=== PATIENT | female | born 1955 | race Caucasian/White ===

== ENCOUNTER → 2017-12-15 16:57 | Outpatient (CLI) | payer OTHER, SELFPAY ==
--- NOTE | 2017-12-15 17:01 | CT_ITS ---
STUDY: CT MAXILLOFACIAL SINUSES REASON FOR EXAM: Female, 62 years old. Chronic sinusitis. RADIATION DOSAGE (If Supplied By Facility): CTDIvol = ( 29.38 ) mGy, DLP = ( 378.50 ) mGycm TECHNIQUE: The patient was scanned in a multi detector CT scanner. High resolution axial imaging was performed without the administration of intravenous contrast material. Sagittal and coronal images were reconstructed. Individualized dose optimization techniques were used for this CT. COMPARISON: None. FINDINGS: FRONTAL SINUSES: Normal aeration, without mucosal inflammatory disease. ETHMOIDAL SINUSES: Normal aeration, without mucosal inflammatory disease. MAXILLARY SINUSES: Minimal mucosal thickening in the floor of the right maxillary sinus, otherwise normal aeration, without mucosal inflammatory disease. SPHENOIDAL SINUSES: Normal aeration, without mucosal inflammatory disease. There is patency of the bilateral maxillary infundibuli with normal uncinate processes, ethmoid bullae, and hiatus semilunaris. Normal bilateral middle turbinates. Normal bilateral inferior turbinates. Normal midline nasal septum. There is patency of the bilateral nasal airways. The visualized osseous structures are normal. The visualized bilateral orbital contents are normal. CT/Sinus/Facial Bone IMPRESSION: Within normal limits. Electronically Signed: Keyshawn Alfaro MD at 23:54 EDT , Service support ,
== END ==
PROVIDERS: Family Provider Family Medicine; PCP Family Medicine
DX: J32.0 Chronic maxillary sinusitis (principal)
CPT/HCPCS: 70486

== ENCOUNTER → 2018-03-03 10:21 | Outpatient (CLI) | payer OTHER, SELFPAY ==
--- NOTE | 2018-03-03 10:24 | BD_ITS ---
STUDY: DUAL ENERGY X-RAY ABSORPTIOMETRY / DXA REASON FOR EXAM: Female, 62 years old. The patient is postmenopausal. TECHNIQUE: Bone Mineral Density (BMD) measurements of lumbar spine and left wrist were obtained. The patient is status post bilateral total hip replacement. COMPARISON: None. FINDINGS: Lumbar Spine (L1-L4): g/cm2 (1.296) / T-score (1.0) / Z-score (2.3) Findings are suggestive of normal bone density with a low fracture risk. Left Forearm: g/cm2 (0.841) / T-score (-0.4) / Z-score (0.7) BD/Dexa Bone Density Study IMPRESSION: The patient is considered normal as outlined below according to World [place] Organization (WHO) criteria with a low fracture risk. Reference Information: The T-score is the number of standard deviations above or below the standard which is normal for young adults at their peak bone mineral density. The World Health Organization (WHO) interprets the T-scores as follows: Above -1 Normal bone density Between -1 and -2.5 Osteopenia Equal to / or below -2.5 Osteoporosis As a practical clinical guideline, osteopenia may be graded as follows: Mild -1 through -1.5 Moderate -1.6 through -2.0 Severe -2.1 through -2.4 The Z-score is the number of standard deviations above or below age-matched controls. A Z-score of less than -1.5 would be considered abnormal. References: 1. NIH Osteoporosis and Related Bone Diseases http://www.osteo.org 2. International Society for Clinical Densitometry http://www.iscd.org 3. National Osteoporosis Foundation http://www.nof.org Electronically Signed: Yunior Barney MD at 15:31 EDT Tel [phone], Service support ,
== END ==
PROVIDERS: Family Provider Family Medicine; PCP Family Medicine; Visit Provider Family Medicine
DX: Z13.228 Encounter for screening for other metabolic disorders (principal)
CPT/HCPCS: 77080

== ENCOUNTER 2018-05-18 17:30 | Outpatient (RCR) | payer OTHER, SELFPAY ==
--- NOTE | 2018-07-03 09:23 | HP.PT.NRP ---
HP - Discharge Summary (1) - Patient Information VIRA MORROW was seen in my office for initial evaluation on 01/12/18. The following Plan of Care was established for this patient: This patient was last seen in our office 05/15/18. Pertinent comments regarding their Physical therapy will appear below: Pt. was seen for DN self pay of her L hip. Pt. will be DC from PT at this point in time. At this point I will be discontinuing this patient from physical therapy. I would be happy to see this patient again in the future if found appropriate by the physician. Thank you! Saw Hammonds
== END 2018-05-18 19:00 | disposition home or self-care (01) ==
LOC: PT 17:30
PROVIDERS: Family Provider Family Medicine; PCP Family Medicine
DX: R69 Illness, unspecified (principal)

== ENCOUNTER → 2018-06-10 11:18 | Outpatient (CLI) | payer OTHER, SELFPAY ==
[2018-06-10 14:14] LABS: Absolute Lymphocyte Count 1.41 X10^3/ul (0.83-4.51); Absolute Neutrophil Count 2.9 X10^3/uL (2.0-7.7); Basophil# 0.01 X10^3/uL; Basophil% 0.2 % (0-1); Eosinophil# 0.15 X10^3/uL; Eosinophils% 3.1 % (0-5); Hematocrit 39.2 % (37-47); Hemoglobin 12.7 g/dl (12.0-15.0); Lymphocyte # 1.41 X10^3/ul (4.0); Lymphocyte % 29.3 % (19-41); Mean Corp Hgb Conc 32.4 g/gl (32-36); Mean Corpuscular Hgb 30.2 pg (27.0-32.0); Mean Corpuscular Volume 93.1 fL (81-99); Mean Platelet Vol. 9.4 fl (6.2-12.0); Monocyte# 0.37 X10^3/uL; Monocyte% 7.7 % (0-10); Neutrophil # 2.87 X10^3/uL (2.7-7.7); Neutrophil % 59.5 % (47-70); Platelet Count 308 K/mm3 (150-450); RBC Distribution Width CV 12.5 % (11.6-14.6); RBC Distribution Width SD 41.9 fl (35.1-43.9); Red Blood Count 4.21 M/mm3 (4.2-5.4); White Blood Count 4.8 K/mm3 (4.4-11.0)
[2018-06-10 14:15] LABS: POSITIVE COUNT NO; POSITIVE DIFFERENTIAL NO; POSITIVE MORPHOLOGY NO
[2018-06-10 14:36] LABS: Anion Gap 5 (5-15); BUN 14 mg/dL (7-18); BUN/Creat Ratio 16.2 RATIO (10-20); Calcium,Total 8.8 mg/dL (8.5-10.1); Chloride 103 mmol/L (98-107); Cholesterol 225 mg/dL (200); Creatinine, Serum 0.87 mg/dL (0.55-1.02); EST Glomerular Filtration Rate 71 mL/min (>60); Est Glom Filt Rate - Afr Amer 85 mL/min (>60); Glucose 96 mg/dL (74-106); High Density Lipoprotein 51 mg/dL; Potassium 4.1 mmol/L (3.5-5.1); Sodium Level 138 mmol/L (136-145); Thyroid Stim Hormone (TSH) 0.81 uIU/mL (0.358-3.74); Triglycerides 189 mg/dL; Very Low Density Lipoprotein 38 mg/dL (5-40)
== END ==
PROVIDERS: Family Provider Family Medicine; PCP Family Medicine; Visit Provider Family Medicine
DX: R00.2 Palpitations (principal); E78.5 Hyperlipidemia, unspecified; E03.9 Hypothyroidism, unspecified
CPT/HCPCS: 36415; 80048; 80061; 84443; 85025

== ENCOUNTER → 2018-06-22 12:25 | Outpatient (CLI) | payer OTHER, SELFPAY ==
--- NOTE | 2018-06-22 12:31 | STE_ITS ---
Reason For Study: Palpitations Stress Results Protocol: Agapito Protocol Maximum Predicted HR: 158 bpm Target HR: 134 bpm% Max imum Predicted HR: 89 % DurationHeart Rate Stage (mm:ss) (bpm) BPCom ment Baseline 74 108/60 No Chest Pain Agapito Protocol Stage I 3:00 10 1 114/76No Chest Pain Agapito Protocol Stage II 3:00 12 2 130/60No Chest Pain Agapito Protocol Stage III 3:00 13 6 140/62No Chest Pain Agapito Protocol Stage IV 0:15 14 1 / No Chest Pain Recovery 79 120/60 No Chest Pain Stress Duration: 9:15 mm:ss Maximum Stress HR: 141 bpmM ETS: 10 Baseline Echocardiogram Findings Stress Echo Wall motion Data Resting WMIntermediate WMStress WM Resting Wall Motion Wall Motion Stress No regional wall motion No regional wall motion abnormalities noted. abnormalities noted. Ejection Fraction 60 %. Ejection Fraction 70 %. Stress Results Normal blood pressure response to exercise. Exercise was stopped due to fatigue. Interpretation Summary Exercise stress echo. Stress protocol: Resting EKG demonstrates normal sinus rhythm with a rate of 56 bpm normal intervals and noted resting blood pressure 108/60 mmHg. The patient exercised according to regular Agapito protocol for a total duration of 9 minutes and 15 seconds. The maximum heart rate attained was 142 bpm is 89% maximum predicted heart rate the maximum workload was 10.9 metabolic equivalents. At rest there were no ST or T wave changes noted suggest ischemia peak exercise upsloping ST changes only were noted with no meet the criteria for ischemia. No clinical angina was noted no arrhythmias were noted. The resting blood pressure 108/60 mmHg with a peak blood pressure 140/62 mmHg. Stress echocardiographic images. The resting echo demonstrated an ejection fraction of 60% with a stress echocardiographic image with all stahl improving with exercise, no regional wall motion abnormalities noted, and improvement with ejection fraction at 70%. Conclusion Normal stress echocardiogram with no EKG or echocardiographic images suggestive of ischemia. Excellent functional capacity. Ordering Physician: Brennen Cornell Referring Physician: Wayne Jennings Performed By: Jaimie Edmonds, RDCS, RVT
== END ==
PROVIDERS: Family Provider Family Medicine; PCP Family Medicine; Referring Provider Family Medicine; Visit Provider Family Medicine
DX: R00.2 Palpitations (principal)
CPT/HCPCS: 93017; 93350

== ENCOUNTER 2018-07-07 14:54 | Outpatient (RCR) | payer SELFPAY ==
--- NOTE | 2018-12-10 16:39 | HP.PT.NRP ---
HP - Discharge Summary (1) - Patient Information VIRA MORROW was seen in my office for initial evaluation on . The following Plan of Care was established for this patient: This patient was last seen in our office . Pertinent comments regarding their Physical therapy will appear below: Dry Needling ayala based patient- appropriate to d/c chart At this point I will be discontinuing this patient from physical therapy. I would be happy to see this patient again in the future if found appropriate by the physician. Thank you! WILLIAMS DalalT
== END 2018-07-07 19:00 | disposition home or self-care (01) ==
LOC: PT 14:54
PROVIDERS: Family Provider Family Medicine; PCP Family Medicine
DX: R69 Illness, unspecified (principal)

== ENCOUNTER → 2019-02-17 | Outpatient (CLI) | payer OTHER, SELFPAY ==
[2018-12-17 14:37] VITALS: BMI 26.4
--- NOTE | 2019-02-17 12:48 | BI_ITS ---
MAMMOGRAPHY - BILATERAL SCREENING REASON FOR EXAM: Female, 63 years old. Routine annual screening examination. PERTINENT HISTORY: Non-contributory. TECHNIQUE: Digital bilateral breast judy (3D mammographic acquisition) in the CC and MLO projections. 2-D mediolateral oblique (MLO) and craniocaudad (CC) views of both breasts were obtained. CAD: Full Field Digital Mammography with Computer Added Detection was performed. COMPARISON: Comparison is made with prior outside examination dated March 27, 2016. FINDINGS: Breast Composition: The breasts are extremely dense, which lowers the sensitivity of mammography. There are no dominant masses or suspicious calcifications. Stable appearance of the bilateral axillary lymph nodes. No other significant abnormalities are identified. There has been no significant change since the prior study. BI/SCREEN MAMM (CAD) W/JUDY BILAT IMPRESSION: Stable bilateral screening mammogram. Yearly follow-up mammogram recommended. (A) ASSESSMENT CATEGORY: BIRADS Category 2: Benign. A letter regarding these results will be sent to the patient by the facility within 30 days. Approximately 10% of breast cancers are not detected by mammography. A normal mammogram should not delay biopsy of a clinically suspicious abnormality. [id number] Electronically Signed: Yunior Barney, at 13:26 EDT , Service support ,
== END | disposition home or self-care (01) ==
PROVIDERS: Family Provider Family Medicine; PCP Family Medicine; Referring Provider Nurse Practitioner Women's Health; Visit Provider Nurse Practitioner Women's Health
DX: Z12.31 Encounter for screening mammogram for malignant neoplasm of breast (principal)
CPT/HCPCS: 77063; 77067

== ENCOUNTER → 2019-07-20 | Outpatient (CLI) | payer OTHER, SELFPAY ==
[2019-05-03 09:26] VITALS: BMI 26.1
[2019-07-20 13:12] LABS: Cholesterol 175 mg/dL (200); High Density Lipoprotein 60 mg/dL; Thyroid Stim Hormone (TSH) 1.74 uIU/mL (0.358-3.74); Triglycerides 95 mg/dL; Very Low Density Lipoprotein 19 mg/dL (5-40)
== END | disposition home or self-care (01) ==
LOC: MTLAB 09:52
PROVIDERS: Family Provider Family Medicine; PCP Family Medicine; Referring Provider Family Medicine; Visit Provider Family Medicine
DX: E03.9 Hypothyroidism, unspecified (principal); E78.5 Hyperlipidemia, unspecified
CPT/HCPCS: 36415; 80061; 84443

== ENCOUNTER → 2020-02-11 15:27 | Outpatient (CLI) | payer OTHER, SELFPAY ==
[2020-02-07 08:42] VITALS: BMI 26.1
[2020-02-11 17:58] LABS: Absolute Lymphocyte Count 1.13 X10^3/uL (0.83-4.51); Absolute Neutrophil Count 3.2 X10^3/uL (2.0-7.7); Basophil# 0.02 X10^3/uL; Basophil% 0.4 % (0-1); Eosinophil# 0.11 X10^3/uL; Eosinophils% 2.3 % (0-5); Hematocrit 36.3 % (37-47); Hemoglobin 11.7 g/dL (12.0-15.0); Lymphocyte # 1.13 X10^3/ul (4.0); Lymphocyte % 23.7 % (19-41); Mean Corp Hgb Conc 32.2 g/dL (32-36); Mean Corpuscular Hgb 30.6 pg (27.0-32.0); Monocyte# 0.31 X10^3/uL; Monocyte% 6.5 % (0-10); NRBC Flagged by Analyzer 0 % (0-5); Neutrophil # 3.19 X10^3/uL (2.7-7.7); Neutrophil % 66.9 % (47-70); Platelet Count 265 K/mm3 (150-450); RBC Distribution Width CV 12.7 % (11.6-14.6); RBC Distribution Width SD 43.8 fl (35.1-43.9); Red Blood Count 3.82 M/mm3 (4.2-5.4); White Blood Count 4.8 K/mm3 (4.4-11.0)
[2020-02-11 18:18] LABS: ALB/GLOB Ratio 1.1 RATIO (0.9-2.4); AST(SGOT) 29 U/L (15-37); Alanine Aminotransfer ALT/SGPT 30 U/L (13-56); Albumin, Serum 3.6 g/dL (3.2-5.0); Alkaline Phosphatase 57 U/L (45-117); Anion Gap 5 (5-15); BUN 23 mg/dL (7-18); BUN/Creat Ratio 23.7 RATIO (10-20); Calcium,Total 8.5 mg/dL (8.5-10.1); Chloride 105 mmol/L (98-107); Creatinine, Serum 0.97 mg/dL (0.55-1.02); EST Glomerular Filtration Rate 62 mL/min (>60); Est Glom Filt Rate - Afr Amer 74 mL/min (>60); Globulin 3.3 g/dL (2.2-4.2); Glucose 86 mg/dL (74-106); Protein, Total 6.9 g/dL (6.4-8.2); Sodium Level 139 mmol/L (136-145)
== END ==
PROVIDERS: PCP Family Medicine; Referring Provider Family Medicine; Visit Provider Family Medicine
DX: R42 Dizziness and giddiness (principal)
CPT/HCPCS: 36415; 80053; 84443; 85025

== ENCOUNTER → 2020-02-18 11:57 | Outpatient (CLI) | payer OTHER, SELFPAY ==
[2020-02-07 08:42] VITALS: BMI 26.1
[2020-02-18 15:20] LABS: Platelet Count 252 K/mm3 (150-450); RET-HE 35.9 pg (30-35); Reticulocyte Count 0.77 % (0.5-1.5)
[2020-02-18 15:58] LABS: Vitamin B12 435 pg/mL (211-911)
[2020-02-18 16:44] LABS: Ferritin 44 ng/mL (8-252); Iron Binding Capacity,Total 373 ug/dL (250-450)
== END ==
PROVIDERS: PCP Family Medicine; Visit Provider Family Medicine
DX: D64.9 Anemia, unspecified (principal)
CPT/HCPCS: 36415; 82607; 82728; 82746; 83550; 85045

== ENCOUNTER → 2020-02-21 | Outpatient (CLI) | payer OTHER, SELFPAY ==
[2019-05-03 09:26] VITALS: BMI 26.1
[2020-02-07 08:42] VITALS: BMI 26.1
--- NOTE | 2020-02-21 11:05 | BI_ITS ---
MAMMOGRAPHY - BILATERAL SCREENING REASON FOR EXAM: Female, 64 years old. Routine annual screening examination. PERTINENT HISTORY: Non-contributory. TECHNIQUE: Digital bilateral breast judy (3D mammographic acquisition) in the CC and MLO projections. 2-D mediolateral oblique (MLO) and craniocaudad (CC) views of both breasts were obtained. CAD: Full Field Digital Mammography with Computer Added Detection was performed. COMPARISON: Comparison is made with prior examination dated February 17, 2019. FINDINGS: Breast Composition: The breasts are extremely dense, which lowers the sensitivity of mammography. There are no dominant masses or suspicious calcifications. No other significant abnormalities are identified. There has been no significant change since the prior study. BI/SCREEN MAMM (CAD) W/JUDY BILAT IMPRESSION: Stable bilateral screening mammogram. Yearly follow-up mammogram recommended. (A) ASSESSMENT CATEGORY: BIRADS Category 1: Negative. A letter regarding these results will be sent to the patient by the facility within 30 days. Approximately 10% of breast cancers are not detected by mammography. A normal mammogram should not delay biopsy of a clinically suspicious abnormality. [id number] Electronically Signed: Yunior Barney, at 12:26 EDT , Service support ,
== END | disposition home or self-care (01) ==
LOC: OPBI 11:05
PROVIDERS: PCP Family Medicine; Referring Provider Nurse Practitioner Women's Health; Visit Provider Nurse Practitioner Women's Health
DX: Z12.31 Encounter for screening mammogram for malignant neoplasm of breast (principal)
CPT/HCPCS: 77063; 77067

== ENCOUNTER → 2020-02-23 16:31 | Outpatient (CLI) | payer OTHER, SELFPAY ==
[2020-02-23 13:25] VITALS: BMI 26.1
[2020-03-01 03:17] LABS: HPV APTIMA, High Risk Negative (Negative)
== END ==
PROVIDERS: PCP Family Medicine; Referring Provider Nurse Practitioner Women's Health; Visit Provider Nurse Practitioner Women's Health
DX: Z12.4 Encounter for screening for malignant neoplasm of cervix (principal)
CPT/HCPCS: 87624; 88175; G0145

== ENCOUNTER → 2020-03-21 15:54 | Outpatient (CLI) | payer OTHER, SELFPAY ==
[2020-03-21 11:52] VITALS: BMI 26.1
== END ==
PROVIDERS: PCP Family Medicine; Referring Provider Nurse Practitioner Women's Health; Visit Provider Nurse Practitioner Women's Health
DX: N95.2 Postmenopausal atrophic vaginitis (principal)
CPT/HCPCS: 87070; 87106; 87205

== ENCOUNTER 2020-11-17 09:03 | Outpatient (RCR) | payer OTHER, SELFPAY ==
[2020-03-21 11:52] VITALS: BMI 26.1
[2020-11-17] MEDS: COVID-19 VACC, MRNA(PFIZER)/PF 30 MCG/0.3 ML SYRINGE IM (13:55)
[2020-12-08] MEDS: COVID-19 VACC, MRNA(PFIZER)/PF 30 MCG/0.3 ML SYRINGE IM (13:43)
== END 2021-02-13 23:59 ==
LOC: IMMUN 09:03
PROVIDERS: PCP Family Medicine; Visit Provider Family Medicine
DX: Z23 Encounter for immunization (principal)
CPT/HCPCS: 0001A; 0002A; 91300

== ENCOUNTER 2020-12-13 08:24 | Day surgery (SDC) | payer OTHER, SELFPAY ==
[2020-11-20 14:09] VITALS: BMI 22.0
--- NOTE | 2020-12-08 14:29 | NURSING ---
PATIENT RECEIVED PFIZER VACCINE X2 12/08/20
[2020-12-13 08:58] VITALS: BP 90/65; PULSE 62; RESP 16; TEMP 36.8; O2SAT 100; BMI 21.5
--- NOTE | 2020-12-13 09:06 | HP.PCM_ITS ---
History and Physical Date of Admission: 12/13/20 Date of Service: 11/20/20 MR#: [id number] Acct: [id number] Name: VIRA MORROW Rep #: [id number] : [id number] Provider: Dr. 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 Is patient in pain?: No Allergies levofloxacin [From Levaquin] Allergy (Mild, Verified 11/20/20 14:09) Unknown sertraline [From Zoloft] Allergy (Mild, Verified 11/20/20 14:09) Unknown Medications spironolactone 25 mg tablet 25 mg PO DAILY 12/17/18 [History Confirmed 11/20/20] trazodone 100 mg tablet 100 mg PO DAILY 02/23/20 [History Confirmed 11/20/20] escitalopram oxalate 5 mg tablet 20 mg PO DAILY tab 02/24/20 [History Confirmed 11/20/20] omeprazole 40 mg capsule,delayed release 40 mg PO DAILY cap 11/20/20 [History Confirmed 11/20/20] Is last menstrual period known: No Post menopausal: Yes Patient : No PFSH Medical History (Updated 11/20/20 @ 14:08 by Swati Smith) Segmental and somatic dysfunction of pelvic region (Acute) Segmental and somatic dysfunction of sacral region (Acute) Facet arthritis of lumbar region (Chronic) Segmental and somatic dysfunction of thoracic region (Acute) Segmental and somatic dysfunction of lumbar region (Acute) Segmental and somatic dysfunction of cervical region (Acute) Anxiety and depression (Acute) GERD (gastroesophageal reflux disease) (Acute) Hemorrhoids (Acute) Osteoarthritis (Acute) Sinusitis (Acute) Surgical History (Updated 11/20/20 @ 14:08 by Swati Smith) H/O bilateral hip replacements (Acute) H/O: (Acute) History of colonoscopy (Acute ~2010) Family History Grandmother Diabetes Father CVA (cerebral vascular accident) Social History (Updated 11/20/20 @ 14:[address] Nehal Eaton MD) Smoking Status: Never smoker alcohol intake: current alcohol intake frequency: a few times a week substance use type: does not use diet: vegetarian well-balanced diet: daily or most days caffeine: Yes what type of physical activity do you participate in: bicycling, weight t raining seatbelt use: always do you feel safe at home: Yes HPI HPI HPI: VIRA MORROW, is a 65 F who presents to the office today for HPI HPI Surgical H&P: Yes HPI: VIRA MORROW, is a 65 F who presents to the office today for diarrhea for colonoscopy. Patient states she has been having loose stools for 3 to 4 weeks it is slightly better but still continues. Patient denies any abdominal pain with this or blood. Patient did states she had some chills when this started but that has improved. Patient states that now the stools are thin/pale and very soft. Patient also states she has increased flatulence. Patient denies any family history of colon cancer. Patient did have a colonoscopy about 10 years ago which was normal. Patient is currently on omeprazole 40 mg p.o. daily due to a trial from ENT patient denies any reflux/heartburn. ROS General General: Yes weight change; no fatigue, colon cancer, breast cancer or weakness HEENT HEENT: No difficulty swallowing, eye injury, eye surgery, swollen glands or hoarseness Endo Endocrine: No thyroid disease, diabetes mellitus, thyroid cancer, Hair loss, heat intolerance or cold intolerance Musc Musculoskeletal: Yes arthritis; no back problems, rheumatoid arthritis, gout or joint pain Cardio Cardiovascular: No pacemaker, heart disease, atrial fibrillation, high blood pressure, heart attack, heart stent, palpitations, shortness of breat with exertion or chest pain Psych Psychiatric: Yes depression and anxiety; no hearing voices Resp Respiratory: No shortness of breath, No sleep apnea, No cough, No COPD, No asthma, No emphysema, No wheezing Gastro Gastrointestinal: No abdominal pain, No nausea or vomiting, Yes diarrhea, No constipation, No blood in stool, No acid reflux, Yes hemorrhoids, No ulcers, No gallbladder problem, No black,tarry stools Migel Hematologic: No blood thinners, No blood disorders, No bleeding, No anemia, No blood clots Neuro Neurologic: No weakness Exam Const General: cooperative, comfortable, no acute distress, well developed Resp Effort & Inspection: normal respiratory effort Cardio Rate: regular rate GI Inspection: non-distended Palpation: soft, nontender Assessment & Plan Problems 1. Diarrhea R19.7 Plan I have discussed the above with the patient. I have offered the patient colonoscopy for evaluation. We will plan to do random biopsies I have explained the risks/benefits of the procedure and described the procedure. I have discussed the risks with the patient, including but not limited to: infection, bleeding, perforation of the GI tract requiring emergency surgery, inability to complete the procedure, injury to any internal organs, complications of anesthesia, etc. - the patient understands and agrees to proceed. I have answered all the patient's questions to the patient's satisfaction and th e patient has no further questions. The patient has been given instructions for the colon cleansing preparation. 1 day of clears, MiraLAX to collect split prep. Nehal Eaton M.D. Pager: [phone] [facility] [address] [place] [address], [facility], [address] [place] [address] Office: [phone] Medications Discontinued: estradiol (Yuvafem) Discontinued Reason: Pt no longer taking 10 mcg vaginal every other day X 2 weeks then twice a week; 30 tabs 6RF fluconazole Discontinued Reason: Pt no longer taking 150 mg PO take one po now and repeat in 3 days 2 tabs 0RF Plan Detail Goals Decrease pain and inflammation Improve ROM Improve ability to work with decreased pain Barriers Facet arthosis Follow Up We will schedule colonoscopy for December 13 per patient request Coding Level of Care Code Off vis,est,level 3 Diagnoses Diarrhea R19.7 COVID (Procedure Consent) Procedure Criteria Procedure Criteria: Yes Elective The surgeon/proceduralist and patient have discussed in detail the risk of exposure to and/or potential harm posed by the COVID-19 virus with having a surgery/procedure at this time versus the risk of? delaying the surgery/procedure. It is not possible to know either the risk of delaying the surgery or procedure or chance of getting an infection with perfect accuracy, but a joint decision was made between the patient and the surgeon/proceduralist ?to proceed at this time with the scheduled surgery/procedure as indicated on the consent form. 11/20/20 1420 <Electronically signed by Nehal Melissa am, MD> Date _ Nehal Eaton MD
[2020-12-13] MEDS: Lactated Ringers 1,000 ML 100 ML IV (09:16)
[2020-12-13 09:51] VITALS: BP 107/65; BP 90/65; PULSE 71; RESP 14; TEMP 36.4; O2SAT 99
[2020-12-13 09:55] VITALS: BP 84/67; BP 90/65; PULSE 68; RESP 14; O2SAT 99
--- NOTE | 2020-12-13 09:56 | OP.COLON_ITS ---
Patient Name: Ivon Villegas Procedure Date: 12/13/2020 9:09 AM Date of : 1955 Age: 65 Procedure: Colonoscopy Indications: Clinically significant diarrhea of unexplained origin Providers: Nehal Eaton MD Medicines: Monitored Anesthesia Care Patient Profile: This is a 65 year old female. Last Colonoscopy: 10 years ago. Complications: No immediate complications. Procedure: Pre-Anesthesia Assessment: - Prior to the procedure, a History and Physical was performed, and patient medications and allergies were reviewed. The patient's tolerance of previous anesthesia was also reviewed. The risks and benefits of the procedure and the sedation options and risks were discussed with the patient. All questions were answered, and informed consent was obtained. Prior Anticoagulants: The patient has taken no previous anticoagulant or antiplatelet agents. ASA Grade Assessment: Per anesthesia. After reviewing the risks and benefits, the patient was deemed in satisfactory condition to undergo the procedure. After I obtained informed consent, the scope was passed under direct vision. Throughout the procedure, the patient's blood pressure, pulse, and oxygen saturations were monitored continuously. The Colonoscope was introduced through the anus and advanced to the terminal ileum. The colonoscopy was technically difficult and complex due to a tortuous colon. Successful completion of the procedure was aided by applying abdominal pressure. The patient tolerated the procedure well. Scope In: 9:26:20 AM Scope Withdrawal Time 0 hours 6 minutes 3 seconds Scope Out: 9:47:39 AM Total Procedure Duration Time 0 hours 21 minutes 19 seconds Findings: Hemorrhoids were found on perianal exam. Non-bleeding internal hemorrhoids were found. The hemorrhoids were Grade I (internal hemorrhoids that do not prolapse). The entire examined colon appeared normal. The terminal ileum appeared normal. Impression: - Hemorrhoids found on perianal exam. - Non-bleeding internal hemorrhoids. - The entire examined colon is normal. - The examined portion of the ileum was normal. - No specimens collected. Recommendation: - Discharge patient to home. - Resume previous diet. - Continue present medications. - Repeat colonoscopy in 10 years for screening purposes. Procedure Code(s): --- Professional --- 51050, Colonoscopy, flexible; diagnostic, including collection of specimen(s) by brushing or washing, when performed (separate procedure) Diagnosis Code(s): --- Professional --- K64.0, First degree hemorrhoids R19.7, Diarrhea, unspecified CPT copyright 2017 [employer]. All rights reserved. The codes documented in this report are preliminary and upon medical biller/coder review may be revised to meet current compliance requirements. MD Nehal Schmitt MD 12/13/2020 9:56:15 AM This report has been signed electronically. Number of Addenda: 0 Note Initiated On: 12/13/2020 9:09 AM
--- NOTE | 2020-12-13 09:56 | OP.CCLET_ITS ---
12/13/2020 Brennen Montana Md Re : Colonoscopy procedure for Ivon Villegas Dear Rubén This procedure was performed on Sunday, December 13, 2020. My impressions and recommendations are as follows: Impressions : - Hemorrhoids found on perianal exam. - Non-bleeding internal hemorrhoids. - The entire examined colon is normal. - The examined portion of the ileum was normal. - No specimens collected. Recommendations : - Discharge patient to home. - Resume previous diet. - Continue present medications. - Repeat colonoscopy in 10 years for screening purposes. My findings are described in the full procedure note, which is enclosed. If I can be of further assistance, please feel free to contact me at Doctor phone number(s): , Work: . Sincerely, MD Nehal Schmitt MD 12/13/2020 9:56:15 AM This report has been signed electronically.
[2020-12-13 10:00] VITALS: BP 89/79; BP 90/65; PULSE 62; RESP 16; O2SAT 99
[2020-12-13 10:07] VITALS: BP 90/38; BP 90/65; PULSE 66; RESP 16; TEMP 36.1; O2SAT 100
[2020-12-13 10:23] VITALS: BP 90/65
== END 2020-12-13 10:26 | disposition home or self-care (01) ==
LOC: EN 08:25 → AC 08:28
PROVIDERS: PCP Family Medicine; Referring Provider Family Medicine; Visit Provider Surgery
PROC: 0DJD8ZZ Inspection of Lower Intestinal Tract, Via Natural or Artificial Opening Endoscopic (ICD-10-PCS; CPT 45378; principal; 2020-12-13 09:25)
DX: R19.7 Diarrhea, unspecified (principal); K64.0 First degree hemorrhoids; M99.01 Segmental and somatic dysfunction of cervical region; M99.03 Segmental and somatic dysfunction of lumbar region; M99.05 Segmental and somatic dysfunction of pelvic region; M99.04 Segmental and somatic dysfunction of sacral region; M99.02 Segmental and somatic dysfunction of thoracic region; K21.9 Gastro-esophageal reflux disease without esophagitis; M19.90 Unspecified osteoarthritis, unspecified site; F41.9 Anxiety disorder, unspecified; F32.9 Major depressive disorder, single episode, unspecified; Z79.899 Other long term (current) drug therapy
CPT/HCPCS: 45378; 87426; J7120; J2405

== ENCOUNTER → 2021-04-03 17:53 | Outpatient (CLI) | payer OTHER, SELFPAY ==
[2021-04-03 15:12] VITALS: BMI 21.5
== END ==
PROVIDERS: PCP Family Medicine; Visit Provider Nurse Practitioner Women's Health
DX: N95.2 Postmenopausal atrophic vaginitis (principal)
CPT/HCPCS: 87070; 87205

== ENCOUNTER → 2021-04-23 15:51 | Outpatient (CLI) | payer OTHER, SELFPAY ==
[2021-04-03 15:12] VITALS: BMI 21.5
--- NOTE | 2021-04-23 15:53 | BI_ITS ---
MAMMOGRAPHY - BILATERAL SCREENING REASON FOR EXAM: Female, 65 years old. Routine annual screening examination. PERTINENT HISTORY: Non-contributory. TECHNIQUE: Digital bilateral breast judy (3D mammographic acquisition) in the CC and MLO projections. 2-D mediolateral oblique (MLO) and craniocaudad (CC) views of both breasts were obtained. CAD: Full Field Digital Mammography with Computer Added Detection was performed. COMPARISON: Comparison is made with prior study of 02/21/2020 and 02/18/2000 FINDINGS: Breast Composition: The breasts are extremely dense, which lowers the sensitivity of mammography. There are no dominant masses or suspicious calcifications. No other significant abnormalities are identified. There has been no significant change since the prior study. BI/SCRN MAMM (CAD)W/JUDY BILAT IMPRESSION: Stable bilateral screening mammogram. Yearly follow-up mammogram recommended. (A) ASSESSMENT CATEGORY: BIRADS Category 1: Negative. A letter regarding these results will be sent to the patient by the facility within 30 days. Approximately 10% of breast cancers are not detected by mammography. A normal mammogram should not delay biopsy of a clinically suspicious abnormality. [id number] Electronically Signed: Yunior Barney MD at 8:21 EDT , Service support ,
== END ==
PROVIDERS: PCP Family Medicine; Referring Provider Nurse Practitioner Women's Health; Visit Provider Nurse Practitioner Women's Health
DX: Z12.31 Encounter for screening mammogram for malignant neoplasm of breast (principal)
CPT/HCPCS: 77063; 77067

== ENCOUNTER → 2021-05-10 13:50 | Outpatient (CLI) | payer MEDICARE, SELFPAY | PROVIDERS: PCP Family Medicine; Visit Provider Nurse Practitioner Women's Health | DX: N76.0 Acute vaginitis (principal) | CPT/HCPCS: 87070; 87205 ==

== ENCOUNTER → 2021-08-28 14:18 | Outpatient (CLI) | payer MEDICARE, OTHER, SELFPAY | PROVIDERS: PCP Family Medicine; Referring Provider Physician Assistant Surgical; Visit Provider Physician Assistant Surgical | DX: Z11.52 Encounter for screening for COVID-19 (principal) | CPT/HCPCS: 87635; U0005; U0003 ==

== ENCOUNTER 2021-10-25 14:57 | Outpatient (CLI) | payer MEDICARE, OTHER, SELFPAY ==
--- NOTE | 2021-10-25 15:03 | BD_ITS ---
STUDY: DUAL ENERGY X-RAY ABSORPTIOMETRY / DXA REASON FOR EXAM: Female, 66 years old. [id number] TECHNIQUE: Bone Mineral Density (BMD) measurements of lumbar spine and left forearm were obtained. COMPARISON: Comparison is made with prior study dated 03/03/2018. FINDINGS: Lumbar Spine (L1-L4): g/cm2 (1.148) / T-score (0.9) / Z-score (2.7) Findings are suggestive of normal bone density with a low fracture risk. Left Forearm: g/cm2 (0.557) / T-score (-0.4) / Z-score (1.2) The T-Scores on the most recent prior examination were: Lumbar Spine (L1-L4): There has been worsening of bone density since the previous examination. BD/Dexa Bone Density Study IMPRESSION: The patient is considered normal as outlined below according to World [employer] Organization (WHO) criteria with a low fracture risk. There has been worsening of bone density since the previous examination. Reference Information: The T-score is the number of standard deviations above or below the standard which is normal for young adults at their peak bone mineral density. The World Health Organization (WHO) interprets the T-scores as follows: Above -1 Normal bone density Between -1 and -2.5 Osteopenia Equal to / or below -2.5 Osteoporosis As a practical clinical guideline, osteopenia may be graded as follows: Mild -1 through -1.5 Moderate -1.6 through -2.0 Severe -2.1 through -2.4 The Z-score is the number of standard deviations above or below age-matched controls. A Z-score of less than -1.5 would be considered abnormal. References: 1. NIH Osteoporosis and Related Bone Diseases www osteo.org 2. International Society for Clinical Densitometry www iscd.org 3. National Osteoporosis Foundation www nof.org Electronically Signed: Yunior Barney MD at 14:30 EST ,
== END 2021-10-25 23:59 | disposition home or self-care (01) ==
LOC: OPBD 14:57
PROVIDERS: PCP Family Medicine; Referring Provider Physician Assistant; Visit Provider Physician Assistant
DX: Z78.0 Asymptomatic menopausal state (principal)
CPT/HCPCS: 77080

== ENCOUNTER 2021-11-23 15:24 | Emergency (ER) | payer MEDICARE, OTHER, SELFPAY ==
[2021-11-23 15:25] VITALS: BP 117/73; PULSE 68; RESP 16; TEMP 36.7; O2SAT 99; BMI 22.6
--- NOTE | 2021-11-23 15:34 | RAD_ITS ---
INDICATION: fall from ladder EXAMINATION/TECHNIQUE: X-RAY - LEFT XR Knee Complete 4 Views or More 4 VIEWS COMPARISON: None. FINDINGS/ RAD/Knee 4 or More Views IMPRESSION: No acute fracture or dislocation. Joint spaces are intact. Small suprapatellar joint effusion. Soft tissues are otherwise unremarkable. No radiopaque foreign bodies. Electronically Signed: Rajan Eric, at 16:05 EDT ,
--- NOTE | 2021-11-23 16:56 | EDS_ITS ---
HPI History of Present Illness Chief Complaint: Lower Extremity Injury Narrative Narrative: Patient presents with injury to her left knee that she sustained prior to arrival. She states that she was up on a ladder, approximately 5 feet, washing windows. She states she did not feel safe and she was on her last window, when she fell to the ground onto her left side. She denies hitting her head or loss of consciousness, stating that she tucked her head and. She presents with pain in her left knee that is worse with movement. She states that her knee was bent when she hit the ground. She denies other injuries, but states she is having difficulty walking. [facility] Medical History Anxiety and depression GERD (gastroesophageal reflux disease) Hemorrhoids Osteoarthritis Sinusitis Home Medications spironolactone 25 mg tablet 25 mg PO DAILY 12/17/18 [History Last Taken Unknown] trazodone 100 mg tablet 100 mg PO QHS 02/23/20 [History Last Taken Unknown] escitalopram oxalate 5 mg tablet 20 mg PO DAILY tab 02/24/20 [History Last Taken Unknown] olopatadine 0.2 % eye drops 1 drp OPHTHALMIC (EYE) DAILY 04/03/21 [History Last Taken Unknown] omeprazole 40 mg capsule,delayed release 40 mg PO DAILY 04/03/21 [History Last Taken Unknown] clotrimazole 1 % topical cream 1 applic TOPICAL .COMPLEX #30 g 05/10/21 [Rx Last Taken Unknown] azithromycin 250 mg tablet See Rx Instructions PO .COMPLEX #6 tab 09/08/21 [Rx Last Taken Unknown] estradiol 10 mcg vaginal tablet 10 mcg VAGINAL .COMPLEX #36 tab 09/17/21 [Rx Last Taken Unknown] estradiol See Rx Instructions VAGINAL 2XW #42.5 g 09/28/21 [Rx Last Taken Unknown] Allergy/AdvReac Type Severity Reaction Status Date / Time levofloxacin [From Levaquin] Allergy Mild Unknown Verified 11/23/21 15:27 sertraline [From Zoloft] Allergy Mild Unknown Verified 11/23/21 15:27 Family History Grandmother Diabetes Father CVA (cerebral vascular accident) Surgical History H/O bilateral hip replacements H/O: History of colonoscopy (~2010) Social History Smoking Status: Never smoker alcohol intake: current alcohol intake frequency: a few times a week substance use type: does not use diet: vegetarian well-balanced diet: daily or most days caffeine: Yes what type of physical activity do you participate in: bicycling and weight training seatbelt use: always do you feel safe at home: Yes ROS ROS ED ROS Narrative Constitutional: No fever, no chills. HEENT: No sore throat. No neck pain. No loss of vision. No rhinorrhea. Cardiovascular: No chest pain. No palpitations. No pedal edema. Respiratory: No cough, no shortness of breath. Abdominal: No abdominal pain. No nausea. No vomiting. Genitourinary: No dysuria. No hematuria. Musculoskeletal: No myalgias. Left knee pain worse with movement. Neurologic: No headaches. No dizziness. No lightheadedness. Skin: No rash. No change in color. Psychiatric: No depression. No anxiety. EXAM Physical Exam Narrative Exam Narrative: Afebrile. Vital signs noted. HEENT: Normocephalic. Atraumatic. PERRL, EOMI. Neck soft and supple. No point tenderness or step off. Cardiovascular: Regular rate and rhythm. No murmurs, rubs, or gallops appreciated. Respiratory: No tachypnea. Lungs clear to auscultation bilaterally. Gastrointestinal: Abdomen soft, nontender, with normoactive bowel sounds. No rebound or guarding. Neurological: Awake. Alert. Nonfocal, nonlateralizing. Skin: No rash. Normal color. No pallor. Musculoskeletal: No pedal edema. Full range of motion extremities. Her left knee is wrapped with an Law bandage and ice packs. There is no overt swelling noted. She is able to flex and extend her left knee. She is also able to pick her leg off the bed without difficulty. She appears neurovascularly intact distally with a palpable dorsalis pedis pulse. No malleoli or pain. Const Vital Signs: 11/23/21 15:25 Temperature 98.1 F Temperature Source Temporal Pulse Rate 68 Respiratory Rate 16 Blood Pressure 117/73 Blood Pressure Mean 87 Pulse Ox 99 Oxygen Delivery Method Room Air MDM MDM MDM Narrative Medical decision making narrative: Nursing protocol have been entered on this patient. Her x-ray of her left knee as interpreted by myself shows no acute fracture or dislocation. There is a small supra talar joint effusion. Radiology confirms this. I do think that this is more of a left knee sprain. Patient declines knee immobilizer. She states she has crutches at home. She will continue ice and elevation. She already takes meloxicam and will supplement with Tylenol. She was referred to Dr. Hernandez on-call for orthopedics to follow-up in a week if not improving. She can also follow-up with her primary care provider. I feel she be discharged safely home with follow-up. Return instructions to the emergency department were reviewed. Disposition is discharged home in stable condition. Radiography Diagnostic Testing: Clinical Impression(s) from Imaging Studies Knee X-Ray 11/23/21 15:34 IMPRESSION: No acute fracture or dislocation. Joint spaces are intact. Small suprapatellar joint effusion. Soft tissues are otherwise unremarkable. No radiopaque foreign bodies. Electronically Signed: Rajan Eric, at 16:05 EDT , Discharge Plan Triage Chief Complaint: Lower Extremity Injury ED Provider: Frederick Quintanilla Dx/Rx/DC Orders Clinical Impression: Left knee sprain Instructions: ED Knee Sprain Prescriptions: No Action spironolactone 25 mg tablet 25 mg PO DAILY RF: 0 escitalopram oxalate [Lexapro] 5 mg tablet 20 mg PO DAILY RF: 0 trazodone 100 mg tablet 100 mg PO QHS RF: 0 omeprazole 40 mg capsule,delayed release(DR/EC) 40 mg PO DAILY RF: 0 olopatadine 0.2 % drops 1 drp ophthalmic (eye) DAILY RF: 0 clotrimazole 1 % cream 1 applic topical .COMPLEX Qty: 30 RF: 1 azithromycin [Zithromax Z-Luís] 250 mg tablet See Rx Instructions PO .COMPLEX Qty: 6 RF: 0 estradiol [Yuvafem] 10 mcg tablet 10 mcg VAGINAL .COMPLEX Qty: 36 RF: 3 estradiol 0.01 % (0.1 mg/gram) cream See Rx Instructions vaginal 2XW Qty: 42.5 RF: 6 Primary Care Provider: Mike Ferro Referrals: Mike Ferro MD [Primary Care Provider] - 1 Week if not improving Chepe Hernandez MD [STAFF PHYSICIAN] - 1 Week if not improving Disposition Disposition: Home, Self Care Discharge Date/Time: 11/23/21 17:13
== END 2021-11-23 17:13 | disposition home or self-care (01) ==
PROVIDERS: Emergency Provider Emergency Medicine; PCP Family Medicine; Visit Provider Emergency Medicine
DX: S83.92XA Sprain of unspecified site of left knee, initial encounter (principal); W11.XXXA Fall on and from ladder, initial encounter
CPT/HCPCS: 73564; 99282

== ENCOUNTER 2022-01-29 13:30 | Outpatient (RCR) | payer MEDICARE, OTHER, SELFPAY ==
--- NOTE | 2021-12-28 16:04 | HP.PTEVAL ---
Patient's Visit Information VIRA MORROW is a 66 year old F referred to Physical Therapy by Dr. Tex Mcgowan MD with a diagnosis of L Medial meniscal tear. Date of Evaluation: 12/28/21 Physical Therapist: Ravin Freitas, PT, ATC - Visit Plan Frequency: 2-3x /Week Duration: 4-6 Weeks Plan: L LE strengthening, core stab ex's, bike, and HEP - Subjective Pt reports she fell off a ladder one month ago which resulted in L knee pain. Pt reports she had x-rays and an MRI which revealed a torn lateral meniscus. Pt also reports she was told she has a tear in her L ACL and PCL. Pt notes she feels better today. Pt notes her pain has progressively decreased over this time. Pt reports she hopes she is going to be able to complete PT in order to avoid having surgery. Pt notes she is very active and likes to play [place] ball, and hopes to be able to return to that as soon as possible. No tingling or numbness in L LE. No sleep difficulty secondary to pain. Pt reports she has LBP as well. Pt reports prolonged standing to perform house chores results in increased pain. 0/10 pain at rest, 5/10 at worst (using a spinning bike). Pt reports L knee will occasionally give out on her. Pt notes sit to stand transfers are really hard at this time. - Pain L knee pain Pain Intensity (Out of 10): 0 Pain Intensity Range: 5 - Objective Neuro: B LE sensation is WNL to light touch. B achilles reflex= 2/3. Palpation: No crepitus with palpation. Minor pain along the medial joint line. ROM: R knee 0-3-145; L knee 0-10-100. MMT: R knee flex= 27, ext= 30 #F; L knee flex= 27, ext= 22 #F. Special tests: Pos McMurrays sign - Balance/Special Test Scores Lower Extremity Functional Score: 43 - Goals Goal 1:: Decrease L knee pain x 50% to aid with transfers Goal Time Frame: 4-6 Weeks Goal 2:: Increase L knee strength x 5#F to aid with sit to stand transfers Goal Time Frame: 4-6 Weeks Goal 3:: Increase L knee ROM x 20 degrees to aid with return to sports without limitation Goal Time Frame: 4-6 Weeks Goal 4:: I with HEP Goal Time Frame: 4-6 Weeks - Rehabilitation Potential Physical Therapy Diagnosis: Pt has L knee pain, weakness, and limited ROM secondary to L med meniscal tear Rehabilitation Potential: Good - Anticipated Interventions Patient/Client Instruction: Educate patient on: Condition, Plan of Care For the Purpose of:: To improve self management Therapeutic Exercise to Include: Strength training, Endurance training, Balance training, Passive ROM, Active ROM, Dynamic Lumbar Stabilization For the Purpose of:: To decrease pain, To increase ROM, To improve muscle performance and motor function Cryotherapy (ice pack, ice massage): Yes For the Purpose of:: To decrease pain Thank you for the opportunity to evaluate your patient. For Medicare and Medicare HMO plans, please review the plan of care and approve it. It will need to be FAXED BACK to us at [phone] for Medicare purposes. For Medicare only, by signing this I certify the plan of care. Please let me know if there are questions or concerns regarding this plan of care. Physician Signature: Date:
--- NOTE | 2022-01-29 14:14 | HP.PTREVAL ---
Dr. Tex Mcgowan MD, It has been my pleasure to treat VIRA MROROW over the last 13 visits for L Medial meniscal tear. Please see the progress note below for an update on the physical therapy plan of care! Subjective: I am still not able to play pickleball yet. Objective/Function: L knee pain 1-10/18. L knee ROM: 0-8-130 degrees. L knee MMT: flex= 33, ext= 32 #F. Pt is I with HEP. Rx goals achieved Plan Plan: Discharge Balance/Gait/Functional tests - Balance/Special Test Scores Lower Extremity Functional Score: 52 Goals Goal 1:: Decrease L knee pain x 50% to aid with transfers Goal Time Frame: 4-6 Weeks Goal Progress: Goal Met Goal 2:: Increase L knee strength x 5#F to aid with sit to stand transfers Goal Time Frame: 4-6 Weeks Goal Progress: Goal Met Goal 3:: Increase L knee ROM x 20 degrees to aid with return to sports without limitation Goal Time Frame: 4-6 Weeks Goal Progress: Goal Met Goal 4:: I with HEP Goal Time Frame: 4-6 Weeks Goal Progress: Goal Met Anticipated Interventions Patient/Client Instruction: Educate patient on: Condition, Plan of Care For the Purpose of:: To improve self management Therapeutic Exercise to Include: Strength training, Endurance training, Balance training, Passive ROM, Active ROM, Dynamic Lumbar Stabilization For the Purpose of:: To decrease pain, To increase ROM, To improve muscle performance and motor function Cryotherapy (ice pack, ice massage): Yes For the Purpose of:: To decrease pain Please do not hesitate to contact me at [phone] by phone or if you have questions or concerns regarding this new plan of care! Sincerely, Ravin Freitas, PT, ATC
--- NOTE | 2022-03-06 07:48 | HP.PTDCSUM ---
It has been my pleasure to treat VIRA MORROW referred by Dr. Tex Mcgowan MD, with the diagnosis of L Medial meniscal tear for a total of 13 visit(s). Discharge Date: Please see the following information for a summary of their discharge status. Subjective: I am still not able to play pickleball yet. L knee pain Pain Intensity (Out of 10): 2 % Improvement: 75 Objective/Function: L knee pain 1-2/10. L knee ROM: 0-8-130 degrees. L knee MMT: flex= 33, ext= 32 #F. Pt is I with HEP. Rx goals achieved Goal 1:: Decrease L knee pain x 50% to aid with transfers Goal Progress: Goal Met Goal 2:: Increase L knee strength x 5#F to aid with sit to stand transfers Goal Progress: Goal Met Goal 3:: Increase L knee ROM x 20 degrees to aid with return to sports without limitation Goal Progress: Goal Met Goal 4:: I with HEP Goal Progress: Goal Met Plan: Discharge If there are questions or concerns regarding this patient's physical therapy, please feel free to call me at [phone]. Thank you for the referral of this patient. Sincerely, Ravin Freitas, PT, ATC Balance/Gait/Functional tests - Balance/Special Test Scores Lower Extremity Functional Score: 52
== END 2022-01-29 19:00 | disposition home or self-care (01) ==
LOC: PT 13:30
PROVIDERS: PCP Family Medicine; Referring Provider Orthopaedic Surgery; Visit Provider Orthopaedic Surgery
DX: S83.242D Other tear of medial meniscus, current injury, left knee, subsequent encounter (principal); X58.XXXD Exposure to other specified factors, subsequent encounter
CPT/HCPCS: 97110; 97161; 97164

== ENCOUNTER 2022-12-11 07:00 | Outpatient (RCR) | payer MEDICARE, OTHER, SELFPAY ==
--- NOTE | 2022-12-04 14:58 | HP.PTEVAL ---
Patient's Visit Information VIRA MORROW is a 67 year old F referred to Physical Therapy by Dr. Santi Gutierrez MD with a diagnosis of cervical spondylosis. Date of Evaluation: 12/04/22 Physical Therapist: Ravin Freitas, PT, ATC - Visit Plan Frequency: 1x/Week Duration: 2 Weeks Plan: 1 visit scap stab ex's, 1 visit DTR and mobs to c/s, - Subjective Pt reports intermittent neck pain for greater than 5 years. Pt reports she has been treating her pain with chiro care and massage, but she is ready to try to get rid of this pain. Pt notes her pain has an insidious onset in nature. Pt reports most of her pain is on the L side of her cervical spine. Pt notes there is no specific cause for her pain, but notes if she turns to her left and holds that posture for a while, her neck will hurt more. Pt reports she had recent xrays which reveals spondylosis of the cervical spine. Pt reports she is able to sleep at night secondary to taking pain meds. Pt reports one of her main complaints is lack of ROM in the cervical spine that limits her ability to drive. 0/10 pain while sitting here at rest, 2/10 pain at worst - Pain neck pain Pain Intensity (Out of 10): 0 Pain Intensity Range: 2 - Objective Neuro: B UE sensation is WNL to light touch. B bicipital reflex= 2/3. Palpation: Pt has severe muscle guarding in c/s throughout paraspinals, scalenes, and sub occips. MMT: B UE's are grossly 5/5 throughout. ROM: Pt is severely limited in all planes. Special testing: negative apley compression and distraction tests - Balance/Special Test Scores Oswestry Neck Score: 8 - Goals Goal 1:: I with HEP Goal Time Frame: 2 Weeks - Rehabilitation Potential Physical Therapy Diagnosis: Pt has neck pain, limited c/s ROM, and difficulty with driving secondary to deg changes in c/s Rehabilitation Potential: Good - Anticipated Interventions Patient/Client Instruction: Educate patient on: Condition, Plan of Care For the Purpose of:: To improve self management Therapeutic Exercise to Include: Strength training, Postural training, Scapular Strength/Stabilization For the Purpose of:: To decrease pain, To increase ROM, To improve muscle performance and motor function Cryotherapy (ice pack, ice massage): Yes For the Purpose of:: To decrease pain, To increase ROM Thank you for the opportunity to evaluate your patient. For Medicare and Medicare HMO plans, please review the plan of care and approve it. It will need to be FAXED BACK to us at [phone] for Medicare purposes. For Medicare only, by signing this I certify the plan of care. Please let me know if there are questions or concerns regarding this plan of care. Physician Signature: Date:
--- NOTE | 2023-01-14 11:46 | HP.PTDCSUM ---
It has been my pleasure to treat VIRA MORROW referred by Dr. Santi Gutierrez MD, with the diagnosis of cervical spondylosis for a total of 4 visit(s). Discharge Date: Please see the following information for a summary of their discharge status. Subjective: Pt reports she no longer has pain and wants to know if she needs to continue neck pain Pain Intensity (Out of 10): 0 % Improvement: 100 Objective/Function: Pt is pain free and I with HEP at this time Goal 1:: I with HEP Plan: Discharge to HEP If there are questions or concerns regarding this patient's physical therapy, please feel free to call me at [phone]. Thank you for the referral of this patient. Sincerely, Ravin Freitas, PT, ATC Balance/Gait/Functional tests - Balance/Special Test Scores Oswestry Neck Score: 0
== END 2022-12-11 19:00 | disposition home or self-care (01) ==
LOC: PT 07:00
PROVIDERS: PCP Family Medicine; Referring Provider Orthopaedic Surgery Orthopaedic Surgery of the Spine; Visit Provider Orthopaedic Surgery Orthopaedic Surgery of the Spine
DX: M47.812 Spondylosis without myelopathy or radiculopathy, cervical region (principal)
CPT/HCPCS: 97110; 97161

== ENCOUNTER → 2023-01-31 | Outpatient (CLI) | payer MEDICARE, OTHER, SELFPAY | END | disposition home or self-care (01) | LOC: LABSPEC 16:45 | PROVIDERS: PCP Family Medicine; Referring Provider Advanced Practice Midwife; Visit Provider Advanced Practice Midwife | DX: N76.0 Acute vaginitis (principal) | CPT/HCPCS: 87070; 87077; 87205 ==

== ENCOUNTER → 2023-04-11 | Outpatient (CLI) | payer MEDICARE, OTHER, SELFPAY ==
--- NOTE | 2023-04-11 12:19 | BI_ITS ---
MAMMOGRAPHY - BILATERAL SCREENING REASON FOR EXAM: Female, 67 years old. Routine annual screening examination. PERTINENT HISTORY: Non-contributory. TECHNIQUE: Digital bilateral breast judy (3D mammographic acquisition) in the CC and MLO projections. 2-D mediolateral oblique (MLO) and craniocaudad (CC) views of both breasts were obtained. CAD: Full Field Digital Mammography with Computer Added Detection was performed. COMPARISON: Comparison is made with prior study April 23, 2021 and February 21, 2020. FINDINGS: Breast Composition: The breasts are extremely dense, which lowers the sensitivity of mammography. There are no dominant masses or suspicious calcifications. No other significant abnormalities are identified. There has been no significant change since the prior study. BI/SCRN MAMM (CAD)W/JUDY BILAT IMPRESSION: Stable bilateral screening mammogram. Yearly follow-up mammogram recommended. (A) ASSESSMENT CATEGORY: BIRADS Category 1: Negative. A letter regarding these results will be sent to the patient by the facility within 30 days. Approximately 10% of breast cancers are not detected by mammography. A normal mammogram should not delay biopsy of a clinically suspicious abnormality. [id number] Electronically Signed: Yunior Barney MD at 13:30 EDT ,
== END | disposition home or self-care (01) ==
LOC: OPBI 12:17
PROVIDERS: PCP Family Medicine; Referring Provider Nurse Practitioner Women's Health; Visit Provider Nurse Practitioner Women's Health
DX: Z12.31 Encounter for screening mammogram for malignant neoplasm of breast (principal)
CPT/HCPCS: 77063; 77067

== ENCOUNTER 2023-05-13 13:30 | Outpatient (RCR) | payer MEDICARE, OTHER, SELFPAY ==
--- NOTE | 2023-04-17 10:56 | HP.PTEVAL_ITS ---
Patient's Visit Information Visit Information Visit Information: VIRA MORROW is a 67 year old F referred to Physical Therapy by Dr. Santi Gutierrez MD with a diagnosis of SPondylolisthesis L4-5. Date of Evaluation: 04/16/23 Physical Therapist: Ravin Freitas, PT, ATC Visit Plan Frequency: 2-3x /Week Duration: 4-6 Weeks Plan: SKTC/DKTC, prone prop, neutral spine stab ex's, nustep, and HEP Subjective Subjective: Pt reports she has had intermittent LBP for a couple years. Pt reports her pain has progressively worsened over this time span. Pt reports she is an avid pickle ball player, and is tired of missing it secondary to her pain. Pt reports she has had x-rays in the past which reveals spondylolisthesis at L4- 5. Pt reports forward bending activity increases her pain. Pt also notes standing and walking for a long period of time both increase her pain. Pt reports sitting tends to decrease her pain. Pt denies tingling or numbness at this time. Pt reports she has no sleep difficulty at this time secondary to pain. Pt denies any post medical Hx of LBP surgery or injury. 2/10 pain at rest, 7/10 pain at worst (standing for a long period of time) Pain LBP: Pain Intensity (Out of 10): 2 Pain Intensity Range: 7 Objective Objective: Neuro: B LE sensation is WNL to light touch. B patellar reflex= 3/3 MM T: R LE is grossly 4+/5, L LE is 5/5 throughout ROM: Pt is severely limited with extension. All other motions are WNL Repeated movements: Prone prop decreases pain. SKTC/DKTC 3 x 10 sec decreases pain Balance/Special Test Scores Oswestry Low Back Score: 6 Goals Goal 1:: Decrease LBP x 50% to aid with return to sport without limitation Goal Time Frame: 4-6 Weeks Goal 2:: Increase L/S ROM to WNL to aid with decreasing pain Goal Time Frame: 4-6 Weeks Goal 3:: I with HEP Goal Time Frame: 4-6 Weeks Rehabilitation Potential Physical Therapy Diagnosis: Pt has LBP and limited ROM in L/S secondary to spondylolisthesis L4-5 Rehabilitation Potential: Good Anticipated Interventions Patient/Client Instruction: Educate patient on: Condition and Plan of Care For the Purpose of:: To improve self management Therapeutic Exercise to Include: Strength training, Endurance training, Postural training, Flexibilty training and Dynamic Lumbar Stabilization For the Purpose of:: To decrease pain, To increase ROM and To improve muscle performance and motor function Text: Thank you for the opportunity to evaluate your patient. For Medicare and Medicare HMO plans, please review the plan of care and approve it. It will need to be FAXED BACK to us at [phone] for Medicare purposes. For Medicare only, by signing this I certify the plan of care. Please let me know if there are questions or concerns regarding this plan of care. Physician Signature: Date:
--- NOTE | 2023-05-13 14:03 | HP.PTDCSUM ---
Discharge Summary D/C summary: It has been my pleasure to treat VIRA MORROW referred by Dr. Santi Gutierrez MD, with the diagnosis of SPondylolisthesis L4-5 for a total of 7 visit(s). Discharge Date: Please see the following information for a summary of their discharge status. Subjective Subjective: I am sore from gardening yesterday Pain LBP: Pain Intensity (Out of 10): 5 Overall Improvement % Improvement: 50 Objective Objective/Function: LBP is high today secondary to gardening yesterday 01/15 Pt remains moderately limited with extension ROM Pt is I with HEP of co9re strengthening ex's Goals Goal 1:: Decrease LBP x 50% to aid with return to sport without limitation Goal Progress: Progressing Goal 2:: Increase L/S ROM to WNL to aid with decreasing pain Goal Progress: Progressing Goal 3:: I with HEP Goal Progress: Goal Met Plan Plan: Discontinue to HEP D/C Information d/c sentence: If there are questions or concerns regarding this patient's physical therapy, please feel free to call me at [phone]. Thank you for the referral of this patient. Sincerely, Ravin Freitas, PT, ATC Balance/Gait/Functional tests Balance/Special Test Scores Oswestry Low Back Score: 2 Improvement % Improvement: 50
== END 2023-05-13 19:00 | disposition home or self-care (01) ==
LOC: PT 13:30
PROVIDERS: PCP Family Medicine; Referring Provider Orthopaedic Surgery Orthopaedic Surgery of the Spine; Visit Provider Orthopaedic Surgery Orthopaedic Surgery of the Spine
DX: M43.16 Spondylolisthesis, lumbar region (principal); M47.812 Spondylosis without myelopathy or radiculopathy, cervical region
CPT/HCPCS: 97110; 97161; 97164

== ENCOUNTER 2023-07-10 14:01 | Emergency (ER) | payer MEDICARE, OTHER, SELFPAY ==
[2023-07-10 14:03] VITALS: BP 150/66; PULSE 57; RESP 18; TEMP 35.8; O2SAT 100; BMI 23.5
--- NOTE | 2023-07-10 15:08 | EX.ED.DYSGE1 ---
HPI History of Present Illness Chief Complaint: Allergic Reaction Informant: patient and spouse/S.O. Narrative Narrative: 68-year-old male presenting to the emergency room with possible reaction to medication. Patient states that this morning she received an injection of cortisone into the left knee. 4 hours later she noticed some discomfort in her throat which she felt like a tightness/swelling. She states she has felt tingling in her lips. No change in voice. No shortness of breath or chest pain. No hives. The patient states that she has not had any progression of symptoms for at least an hour. She states she went to urgent care was referred to the emergency department she states that the injection was for some knee pain that she has been experiencing due to trauma about a year ago. She states she has a torn ACL and meniscus. Injection was given at [facility] with Dr. Mcgowan. Patient to her knowledge has not had this medication before. She is unsure if it is mixed with any other medications like lidocaine. Patient notes that she has noticed some slight discomfort with eating particularly small particle foods. [facility] Medical History Anxiety and depression GERD (gastroesophageal reflux disease) Hemorrhoids Osteoarthritis Sinusitis Home Medications spironolactone 25 mg tablet 25 mg PO DAILY 12/17/18 [History Last Taken Unknown] trazodone 100 mg tablet 100 mg PO QHS 02/23/20 [History Last Taken Unknown] escitalopram oxalate 5 mg tablet (Lexapro) 20 mg PO DAILY 02/24/20 [History Last Taken Unknown] olopatadine 0.2 % eye drops 1 drp ophthalmic (eye) DAILY 04/03/21 [History Last Taken Unknown] omeprazole 40 mg capsule,delayed release 40 mg PO DAILY 04/03/21 [History Last Taken Unknown] clotrimazole 1 % topical cream 1 applic topical .COMPLEX #30 grams 10/01/22 [Rx Last Taken Unknown] fluconazole 150 mg tablet 150 mg PO ONCE #1 TAB 01/31/23 [Rx Last Taken Unknown] medroxyprogesterone 10 mg tablet (Provera) 10 mg PO DAILY 10 days #30 tabs 04/07/23 [Rx Last Taken Unknown] estradiol 2 mg (7.5 mcg/24 hour) vaginal ring (Estring) 1 vag ring vaginal [id number] #[id number] ea 07/08/23 [Rx Last Taken Unknown] Allergy/AdvReac Type Severity Reaction Status Date / Time levofloxacin [From Levaquin] Allergy Mild Unknown Verified 03/31/23 08:54 sertraline [From Zoloft] Allergy Mild Unknown Verified 03/31/23 08:54 Family History Grandmother Diabetes Father CVA (cerebral vascular accident) Surgical History H/O bilateral hip replacements H/O: History of colonoscopy (~2010) Social History Smoking Status: Never smoker alcohol intake: current alcohol intake frequency: a few times a week substance use type: does not use diet: vegetarian well-balanced diet: daily or most days caffeine: Yes what type of physical activity do you participate in: bicycling and weight training seatbelt use: always do you feel safe at home: Yes ROS ROS ED Constitutional Constitutional ED: Denies chills or weight loss Eyes Eyes: Denies change in vision or diplopia ENT ENT ED: Reports other Details: See history of present illness ; Denies ear pain, rhinorrhea or sore throat Cardiovascular Cardiovascular: Denies chest pain, orthopnea, palpitations or racing heartbeat Respiratory/Chest Respiratory/Chest: Denies cough, dyspnea or orthopnea Gastrointestinal Gastrointestinal: Denies abdominal pain, diarrhea, nausea or vomiting Genitourinary Genitourinary ED: Denies dysuria, hematuria or urinary frequency Musculoskeletal Musculoskeletal: Reports other Details: Left knee pain ; Denies arthralgias or myalgias Integumentary Denies abscess or rash Neurologic Neurologic: Reports paresthesias; Denies headache(s) or weakness Psychiatric Psychiatric: Denies anxiety, depression, suicidal ideation or suicidal thoughts Endocrine Endocrinology: Denies polydipsia, polyphagia or polyuria Allergic/Immunologic Allergic/Immunologic ED: Denies mouth swelling, tongue swelling or urticaria EXAM Physical Exam Const Vital Signs: 07/10/23 14:03 Temperature 96.5 F L Temperature Source Temporal Pulse Rate 57 L Respiratory Rate 18 Blood Pressure 150/66 H Blood Pressure Mean 94 Pulse Ox 100 Oxygen Delivery Method Room Air Positive well nourished and well developed General Appearance ED: well developed HEENT Reports normocephalic, head/scalp atraumatic and moist mucous membranes HEENT Narrative: Patient's voice sounds normal. There is no stridor. The uvula is not swollen. I do not appreciate any swelling in the neck. No significant lymphadenopathy noted. Thyroid does not palpate enlarged. No carotid bruits heard. Eyes PERRL and EOMs intact bilaterally Neck no lymphadenopathy, supple and no JVD Resp normal respiratory effort and clear to auscultation bilaterally Cardio regular rate, regular rhythm and no murmurs GI normal to inspection, nondistended, normoactive bowel sounds and non-tender Palpation: soft Back/Spine no CVA tenderness and normal ROM Extremity normal to inspection General Extremety ED: Negative for edema General Extremity: Negative for edema Neuro oriented x3 and CN's II-XII intact bilaterally Sensorium / Orientation: alert Motor Exam: strength 5/5 throughout Psych mental status grossly normal Mood & Affect: Negative for depressed or tearful Skin no rashes or lesions noted and no wounds Skin Narrative: Injection site appears without complication MDM MDM MDM Narrative Medical decision making narrative: At this point difficult to say if this was/is a true allergic reaction to cortisone. Would recommend a dose of Benadryl. Symptoms can be monitored at home return if worsening or concerns. As far as the symptoms that she was having before today I offered a CT. Patient has a vertebral history event tonight in [place]. She states she will follow-up with her primary care doctor about this outpatient work-up. Discharge Plan Triage Chief Complaint: Allergic Reaction ED Provider: Js Jasso Dx/Rx/DC Orders Clinical Impression: Dysphagia, Medication reaction Instructions: ED General Allergic Reactions Prescriptions: No Action spironolactone 25 mg tablet 25 mg PO DAILY escitalopram oxalate [Lexapro] 5 mg tablet 20 mg PO DAILY trazodone 100 mg tablet 100 mg PO QHS omeprazole 40 mg capsule,delayed release(DR/EC) 40 mg PO DAILY olopatadine 0.2 % drops 1 drp ophthalmic (eye) DAILY clotrimazole 1 % cream 1 applic topical .COMPLEX Qty: 30 1RF Rx Instructions: 1 applic topical 1 to 2 times daily prn; fluconazole 150 mg tablet 150 mg PO ONCE Qty: 1 0RF Rx Instructions: as a single dose medroxyprogesterone [Provera] 10 mg tablet 10 mg PO DAILY 10 Days Qty: 30 3RF Estring 2 mg (7.5 mcg /24 hour) ring 1 vag ring vaginal [id number] Qty: 1 2RF Primary Care Provider: Mike Ferro Referrals: Mike Ferro MD [Primary Care Provider] - 1-2 Weeks Disposition Disposition: Home, Self Care
[2023-07-10 15:16] VITALS: PULSE 68; RESP 16
== END 2023-07-10 15:17 | disposition home or self-care (01) ==
PROVIDERS: Emergency Provider Emergency Medicine; PCP Family Medicine; Visit Provider Emergency Medicine
DX: R13.10 Dysphagia, unspecified (principal); T38.0X5A Adverse effect of glucocorticoids and synthetic analogues, initial encounter
CPT/HCPCS: 99282

== ENCOUNTER → 2023-11-25 | Outpatient (CLI) | payer SELFPAY | END | disposition home or self-care (01) | PROVIDERS: PCP Family Medicine; Referring Provider Family Medicine; Visit Provider Family Medicine | DX: Z78.9 Other specified health status (principal) | CPT/HCPCS: 76499 ==

== ENCOUNTER 2023-12-11 14:00 | Outpatient (RCR) | payer MEDICARE, OTHER, SELFPAY ==
--- NOTE | 2023-11-25 14:35 | HP.PTEVAL_ITS ---
Patient's Visit Information Visit Information Visit Information: VIRA MORROW is a 68 year old F referred to Physical Therapy by SALENA KIRKPATRICK with a diagnosis of Spondylolisthesis and B hip pain. Date of Evaluation: 11/25/23 Physical Therapist: Ravin Freitas, PT, ATC Visit Plan Frequency: 2x /Week Duration: 2 Weeks Plan: Issue and instruct pt on more advanced core strengthening and B hip strengthening ex's over 4 visits Subjective Subjective: Pt reports she has had hip pain for approximately 6 weeks, and has had LBP chronically. Pt reports she has been performing some core strengthening ex's at home that she was given in the past, but the pain is remaining about the same. Pt denies any tingling or numbness in LE's at this time. Pt reports she did receive a cortisone injection one week ago that has made a difference, but notes she continues to have L hip pain at this time. Pt reports no sleep difficulty at this time secondary to pain, but notes she has to take sleep meds to stay asleep. Pt reports she is most limited when she is doing yard work, or playing pivckle ball and attempting to stand upright after bending forward. LBP ranges from 0-8/10, while L hip pain ranges from 2-6/10. Pain L hip pain: Pain Intensity (Out of 10): 2 Pain Intensity Range: 6 LBP: Pain Intensity (Out of 10): 0 Pain Intensity Range: 8 Objective Objective: Neuro: B LE sensation is WNL to light touch. B patellar reflex= 2/3 MMT: B LE's are grossly 5/5 throughout ROM: Pt is severely limited with L/S extension. All other ranges are WFL Stability: Pt demonstrates a Trendelenburg stance while performing SLS, and contralateral hip drops with bridge single leg touch. Balance/Special Test Scores Oswestry Low Back Score: 6 Goals Goal 1:: Pt will be I with HEP of L/S stabilization and B hip strengthening in 4 visits Goal Time Frame: 2 Weeks Goal 2:: Decrease LBP and B hip pain x 50% to aid with IADL's Goal Time Frame: 2 Weeks Rehabilitation Potential Physical Therapy Diagnosis: Pt has LBP, B hip pain, and limited L/S ROM secondary to deg changes in the lumbar spine Rehabilitation Potential: Good Anticipated Interventions Patient/Client Instruction: Educate patient on: Condition and Plan of Care For the Purpose of:: To improve self management Therapeutic Exercise to Include: Strength training, Postural training, Flexibilty training and Dynamic Lumbar Stabilization For the Purpose of:: To decrease pain and To improve muscle performance and motor function Text: Thank you for the opportunity to evaluate your patient. For Medicare and Medicare HMO plans, please review the plan of care and approve it. It will need to be FAXED BACK to us at [phone] for Medicare purposes. For Medicare only, by signing this I certify the plan of care. Please let me know if there are questions or concerns regarding this plan of care. Physician Signature: Date:
--- NOTE | 2023-12-16 13:30 | HP.PTDCSUM ---
Discharge Summary D/C summary: It has been my pleasure to treat VIRA MORROW referred by SALENA KIRKPATRICK, with the diagnosis of Spondylolisthesis and B hip pain for a total of 6 visit(s). Discharge Date: Please see the following information for a summary of their discharge status. Subjective Subjective: I have had no pain Pain L hip pain: Pain Intensity (Out of 10): 0 LBP: Pain Intensity (Out of 10): 0 r quad: Pain Intensity (Out of 10): 0 Overall Improvement % Improvement: 75 Objective Objective/Function: Pt has no LBP or hip pain at this time Pt is I with a HEP Rx goals achieved Goals Goal 1:: Pt will be I with HEP of L/S stabilization and B hip strengthening in 4 visits Goal Progress: Goal Met Goal 2:: Decrease LBP and B hip pain x 50% to aid with IADL's Goal Progress: Goal Met Plan Plan: Discharge to HEP D/C Information d/c sentence: If there are questions or concerns regarding this patient's physical therapy, please feel free to call me at [phone]. Thank you for the referral of this patient. Sincerely, Ravin Freitas, PT, ATC Balance/Gait/Functional tests Balance/Special Test Scores Oswestry Low Back Score: 0 Improvement % Improvement: 75
== END 2023-12-11 19:00 | disposition home or self-care (01) ==
LOC: PT 14:00
PROVIDERS: PCP Family Medicine; Referring Provider Nurse Practitioner Family; Visit Provider Nurse Practitioner Family
DX: M70.62 Trochanteric bursitis, left hip (principal); Z96.643 Presence of artificial hip joint, bilateral; M43.16 Spondylolisthesis, lumbar region
CPT/HCPCS: 97110; 97161

== ENCOUNTER 2024-05-17 10:40 | Emergency (ER) | payer MEDICARE, OTHER, SELFPAY ==
[2024-05-17 10:42] VITALS: BP 99/55; PULSE 57; RESP 16; TEMP 36.4; O2SAT 99; BMI 21.1
--- NOTE | 2024-05-17 11:35 | CT_ITS ---
INDICATION: Right-sided chest pain EXAMINATION: CT CHEST WITHOUT CONTRAST - CT Chest W/O Contrast Injection TECHNIQUE: Helically acquired images were obtained of the chest. A radiation dose optimization technique was used for this scan. IV Contrast dosage and agent: None. COMPARISON: None. FINDINGS: LUNGS, PLEURA AND LARGE AIRWAYS: Lung windows show lungs to be normally expanded with chronic interstitial changes in both lung snell. There is no organized infiltrate or effusion. There are noncalcified nodular densities in the right lower lobe. On axial image 83 there is a noncalcified 4 mm nodule, there is a pleural-based noncalcified 3 mm nodule on axial image 86, there is a 2 to 3 mm noncalcified pleural-based nodule in the right lower lobe on axial image 94. Since there are no previous studies available for comparison, a six-month follow-up is recommended to assess stability. THYROID: No thyroid lesions. HEART AND PERICARDIUM: Heart size is normal. No pericardial effusion. CORONARY ARTERIES: Coronary artery calcification is seen. VESSELS: Thoracic aorta is not dilated. MEDIASTINUM AND PITA: No suspicious enlarged axillary, mediastinal or hilar adenopathy. Esophagus is unremarkable. No hiatal hernia. UPPER ABDOMEN: No acute pathology. BONES: No suspicious lytic or blastic abnormality. CT/Chest without Contrast IMPRESSION: No acute pulmonary process, there are however small subcentimeter noncalcified nodular densities in the right lower lobe on images described above. 6 month follow-up study recommended to assess stability No suspicious adenopathy Electronically Signed: Andrew Mackay MD at 12:00 EDT ,
--- NOTE | 2024-05-17 12:10 | EKG12_ITS ---
Test Reason : CHEST OTHER Blood Pressure : / mmHG Vent. Rate : 046 BPM Atrial Rate : 046 BPM P-R Int : 166 ms QRS Dur : 088 ms QT Int : 468 ms P-R-T Axes : 060 -29 023 degrees QTc Int : 409 ms Sinus bradycardia Otherwise normal ECG Confirmed by DECLAN AREVALO, MARLEN ([id number]), editor continuity and script JOHN BACON ([id number]) on 05/20/2024 9:24:49 AM Referred By: Confirmed By:MARLEN MANRIQUEZ MD
--- NOTE | 2024-05-17 12:10 | RAD_ITS ---
INDICATION: chest pain EXAMINATION/TECHNIQUE: X-RAY - XR Chest 1 View COMPARISON: No relevant prior comparison study available FINDINGS: LINES/DEVICES: None. LUNGS: No consolidation, edema or effusion. No pneumothorax. MEDIASTINUM AND CARDIOVASCULAR STRUCTURES: Cardiac silhouette not enlarged. Central airways and mediastinal contour are unremarkable. BONES AND SOFT TISSUES: Mild degenerative changes of the thoracic spine. RAD/Chest 1 View (Portable) IMPRESSION: No radiographic evidence of acute cardiopulmonary disease. Electronically Signed: Javon Stovall MD at 13:07 EDT ,
--- NOTE | 2024-05-17 12:15 | ED.VIS.CHEST ---
HPI History of Present Illness Chief Complaint: Chest Other [facility] Medical History GERD (gastroesophageal reflux disease) Sinusitis Anxiety and depression Hemorrhoids Osteoarthritis Home Medications ?Medication ?Instructions ?Recorded ?Last Taken ?Type spironolactone 25 mg tablet 25 mg PO DAILY 12/17/18 Unknown History trazodone 100 mg tablet 100 mg PO QHS 02/23/20 Unknown History escitalopram oxalate 5 mg tablet 20 mg PO DAILY 02/24/20 Unknown History (Lexapro) olopatadine 0.2 % eye drops 1 drp ophthalmic (eye) DAILY 04/03/21 Unknown History omeprazole 40 mg capsule,delayed 40 mg PO DAILY 04/03/21 Unknown History release clotrimazole 1 % topical cream 1 applic topical .COMPLEX #30 grams 10/01/22 Unknown Rx fluconazole 150 mg tablet 150 mg PO ONCE #1 TAB 01/31/23 Unknown Rx medroxyprogesterone 10 mg tablet 10 mg PO DAILY 10 days #30 tabs 04/07/23 Unknown Rx (Provera) estradiol 2 mg (7.5 mcg/24 hour) 1 vag ring vaginal [id number] #1 ea 10/29/23 Unknown Rx vaginal ring (Estring) Allergy/AdvReac Type Severity Reaction Status Date / Time levofloxacin (From Levaquin) Allergy Mild Unknown Verified 05/17/24 10:42 sertraline (From Zoloft) Allergy Mild Unknown Verified 05/17/24 10:42 Family History Grandmother Diabetes Father CVA (cerebral vascular accident) Surgical History History of colonoscopy (~2010) H/O: H/O bilateral hip replacements Social History Smoking Status: Never smoker alcohol intake: current alcohol intake frequency: a few times a week substance use type: does not use diet: vegetarian well-balanced diet: daily or most days caffeine: Yes what type of physical activity do you participate in: bicycling and weight training seatbelt use: always do you feel safe at home: Yes EXAM Physical Exam Const Vital Signs: 05/17/24 10:42 05/17/24 12:10 05/17/24 14:41 Temperature 97.5 F L Temperature Source Temporal Pulse Rate 57 L 44 L Respiratory Rate 16 16 Blood Pressure 99/55 L 114/79 Blood Pressure Mean 69 90 Pulse Ox 99 100 Oxygen Delivery Method Room Air Room Air [facility] Narrative Medical decision making narrative: HISTORY OF PRESENT ILLNESS: 69-year-old female history of chronic neck pain, degenerative disease, chest pain presents with right-sided rib pain. Started this morning. Notes she was working out yesterday she may have injured herself however she cannot describe an inciting event or time. Notes the pain is worse with movement specifically bending over. Denies any other trauma. Denies pressure-like chest pain, ripping or tearing pain. Denies focal weakness. Denies leg swelling. Denies cough fever chills. The patient denies recent surgery in the last 4 weeks or immobilization in the last 3 days, denies previous diagnosis of DVT or PE, hemoptysis, unilateral leg swelling or malignancy with treatment the last 6 months or palliative. No estrogen use noted. Patient denies sudden onset of pain, no tearing sensation, no migratory symptoms, no new numbness, weakness or loss of sensation. Patient denies family history or personal history of Connective tissue disorders (Marfan's Syndrome, Hamilton Danlos etc) REVIEW OF SYSTEMS: Pertinent positives: Chest pain, rib pain Pertinent negatives: Syncope, bleeding diathesis PHYSICAL EXAM: Nursing triage notes reviewed, Vital signs reviewed Constitutional: please see [facility] HENT: MMM Eyes: Pupils equal round and reactive to light, Extraocular muscles intact Neck: No stridor, no JVD, full neck ROM Lungs: Clear to auscultation, No wheezing or rales. No increased work of breathing, no conversational dyspnea, no accessory muscle use, no nasal flaring. No respiratory distress noted Heart: Regular rate and rhythm, No murmurs, No rubs and No gallops, 2+ distal pulses (radial, femoral, posterior tibial) in all extremities Abdomen: Soft, there is no tenderness, rigidity, rebound or guarding, no obvious peritoneal signs, no palpable pulsatile abdominal masses, no auscultated abdominal bruit : No CVAT Extremities: No edema Neuro: No focal neurological deficits, cranial nerves II through XII intact, 5/5 strength in all extremities. Intact sensation to light touch in all extremities, 2+ reflexes bilateral patella tendons. Normal gait. No ataxia. Skin: No rash or lesions noted MEDICAL DECISION MAKING: Chief Complaint: Chest pain, rib pain External records reviewed: Factors affecting care: As per HPI Social determinants of health: none History obtained from others: Consults: none [ [facility] Narrative: Patient was initially hemodynamically stable, afebrile and nontoxic-appearing. Exam without focal cardiopulmonary normality. I considered the following differential diagnosis: Musculoskeletal etiology, PE, aortic dissection, ACS, anemia, electrolyte disturbance, pneumonia I obtained a broad lab and imaging workup to further elucidate etiology of the patient's complaints. ALL IMAGES (IF OBTAINED) HAVE BEEN PERSONALLY REVIEWED AND INTERPRETED BY MYSELF. CT scan of the chest is negative for pulmonary edema, pneumothorax, pneumonia. Does show a right sided nodule. (Incidental finding communicated the patient) I have personally reviewed the patient's chest x-ray. Chest x-ray is unremarkable for pulmonary edema, pneumothorax, pneumonia or focal cardiopulmonary abnormality. EKG with sinus bradycardia, normal intervals, no STEMI, left ax deviation High-sensitivity troponin is negative, no evidence of myocardial ischemia Delta troponin negative as well. CBC without leukocytosis, severe anemia, no thrombocytopenia. BMP without evidence of significant electrolyte abnormalities, no anion gap, no acute kidney injury. The synthesis of the patient history, physical exam, labs images suggest likely musculoskeletal chest pain. This is evidenced by the patient's negative labs and images. The patient and/or family, caregivers express understanding. The patient and/or family, caregivers agrees with the plan. Shared decision making: I will have a discussion with the patient and or visitors regarding risk/benefits of further testing or admission. They will be made aware of of the risk/benefits inherent in this decision they will be given the opportunity to voice understanding. Total critical care time today provided was at least 0 minutes. This excludes separately billable procedures. Critical care time (if documented) is secondary to the patient having high probability of clinically significant/life threatening deterioration in the patient's condition which required my urgent intervention. Impression: 1. Right rib pain 2. History of GERD Dispo: Discharge home This note was generated with [employer] dictation software. It may contain incorrect words, spelling, and punctuation that were not noted in review of the chart prior to signing. Lab Data Labs: Laboratory Results - last 24 hr 05/17/24 05/17/24 12:25 14:26 WBC 4.7 RBC 4.07 L Hgb 12.3 Hct 37.8 MCV 92.9 MCH 30.2 MCHC 32.5 RDW Std Deviation 43.5 RDW Coeff of Alex 12.7 Plt Count 242 MPV 9.2 Immature Gran % (Auto) 0.200 Neut % (Auto) 58.6 Lymph % (Auto) 28.1 [place] % (Auto) 9.9 Eos % (Auto) 2.6 Baso % (Auto) 0.6 Absolute Neuts (auto) 2.7 Absolute Lymphs (auto) 1.31 Nucleated RBC % 0 Sodium 141 Potassium 3.9 Chloride 107 Carbon Dioxide 30.0 Anion Gap 4 L BUN 17 Creatinine 0.80 Estim Creat Clear Calc 60.56 Est GFR (MDRD) Af Amer 92 Est GFR (MDRD) Non-Af 76 BUN/Creatinine Ratio 21.4 H Glucose 98 Calcium 8.8 Troponin I High Sens 4 3 Radiography Diagnostic Testing: Clinical Impression(s) from Imaging Studies Chest CT 05/17/24 11:35 IMPRESSION: No acute pulmonary process, there are however small subcentimeter noncalcified nodular densities in the right lower lobe on images described above. 6 month follow-up study recommended to assess stability No suspicious adenopathy Electronically Signed: Andrew Mackay MD at 12:00 EDT , Chest X-Ray 05/17/24 12:10 IMPRESSION: No radiographic evidence of acute cardiopulmonary disease. Electronically Signed: Javon Stovall MD at 13:07 EDT , Discharge Plan Triage Chief Complaint: Chest Other ED Provider: Denilson Shukla Dx/Rx/DC Orders Clinical Impression: Chest pain Instructions: Chest Pain [facility] Prescriptions: No Action spironolactone 25 mg tablet 25 mg PO DAILY escitalopram oxalate [Lexapro] 5 mg tablet 20 mg PO DAILY trazodone 100 mg tablet 100 mg PO QHS omeprazole 40 mg capsule,delayed release(DR/EC) 40 mg PO DAILY olopatadine 0.2 % drops 1 drp ophthalmic (eye) DAILY clotrimazole 1 % cream 1 applic topical .COMPLEX Qty: 30 1RF Rx Instructions: 1 applic topical 1 to 2 times daily prn; fluconazole 150 mg tablet 150 mg PO ONCE Qty: 1 0RF Rx Instructions: as a single dose medroxyprogesterone [Provera] 10 mg tablet 10 mg PO DAILY 10 Days Qty: 30 3RF Estring 2 mg (7.5 mcg /24 hour) ring 1 vag ring vaginal [id number] Qty: 1 2RF Primary Care Provider: Mike Ferro Referrals: Mike Ferro MD [Primary Care Provider] - Activity Restrictions/Additional Instructions: Thank you for trusting us with your care today! Please take Tylenol (2 pills, 650 mg), ibuprofen (2 pills, 400 mg) every 6 hours as needed for pain and fever control. Concern of taking a daily aspirin. Please return to the emergency department if your symptoms change or worsen. Please follow with your primary care physician for further outpatient evaluation and management. Print Language: Kazakh Disposition Disposition: Home, Self Care
[2024-05-17 12:34] LABS: Absolute Lymphocyte Count 1.31 X10^3/uL (0.83-4.51); Absolute Neutrophil Count 2.7 X10^3/uL (2.0-7.7); Basophil# 0.03 X10^3/uL; Basophil% 0.6 % (0-1); Eosinophil# 0.12 X10^3/uL; Eosinophils% 2.6 % (0-5); Hematocrit 37.8 % (37-47); Hemoglobin 12.3 g/dL (12.0-15.0); Lymphocyte # 1.31 X10^3/ul (0.83-4.51); Lymphocyte % 28.1 % (19-41); Mean Corp Hgb Conc 32.5 g/dL (32-36); Mean Corpuscular Hgb 30.2 pg (27.0-32.0); Mean Corpuscular Volume 92.9 fL (81-99); Mean Platelet Vol. 9.2 fl (6.2-12.0); Monocyte# 0.46 X10^3/uL; Monocyte% 9.9 % (0-10); NRBC Flagged by Analyzer 0 % (0-5); Neutrophil # 2.73 X10^3/uL (2.7-7.7); Neutrophil % 58.6 % (47-70); Platelet Count 242 K/mm3 (150-450); RBC Distribution Width CV 12.7 % (11.6-14.6); RBC Distribution Width SD 43.5 fl (35.1-43.9); Red Blood Count 4.07 M/mm3 (4.2-5.4); White Blood Count 4.7 K/mm3 (4.4-11.0)
[2024-05-17 12:57] LABS: Anion Gap 4 (5-15); BUN 17 mg/dL (7-18); BUN/Creat Ratio 21.4 RATIO (10-20); Calcium,Total 8.8 mg/dL (8.5-10.1); Chloride 107 mmol/L (98-107); EST Glomerular Filtration Rate 76 mL/min (>60); Est Glom Filt Rate - Afr Amer 92 mL/min (>60); Estimated Creatinine Clearance 60.56 ml/min; Glucose 98 mg/dL (74-106); Potassium 3.9 mmol/L (3.5-5.1); Sodium Level 141 mmol/L (136-145); Troponin-I HS (w/2H Reflex) 4 pg/mL (3.0-54.0)
[2024-05-17 14:31] LABS: Reflex Troponin-HS? (from REC) Y
[2024-05-17 14:41] VITALS: BP 114/79; PULSE 44; RESP 16; O2SAT 100
[2024-05-17 15:09] LABS: Troponin-I HS 3 pg/mL (3.0-54.0)
[2024-05-17 16:30] VITALS: BP 119/62; PULSE 61; RESP 16; TEMP 36.8; O2SAT 99
== END 2024-05-17 18:11 | disposition home or self-care (01) ==
PROVIDERS: Emergency Provider Emergency Medicine; PCP Family Medicine; Visit Provider Emergency Medicine
DX: R07.81 Pleurodynia (principal)
CPT/HCPCS: 71045; 71250; 80048; 84484; 85025; 93005; 99284; A4216

== ENCOUNTER → 2024-08-03 | Outpatient (CLI) | payer MEDICARE, OTHER, SELFPAY | END | disposition home or self-care (01) | LOC: LABSPEC 11:33 | PROVIDERS: PCP Family Medicine; Referring Provider Nurse Practitioner Women's Health; Visit Provider Nurse Practitioner Women's Health | DX: N89.8 Other specified noninflammatory disorders of vagina (principal) | CPT/HCPCS: 87070; 87205 ==

== ENCOUNTER 2024-10-27 08:13 | Observation (INO) | payer MEDICARE, OTHER, SELFPAY ==
[2024-10-27] VITALS (11 sets, daily range): BP systolic 117–160; BP diastolic 49–107; PULSE 52–63; RESP 16–18; TEMP 36.7–37; O2SAT 95–100; BMI 21.9; BMI 21.7
--- NOTE | 2024-10-27 08:24 | CT_ITS ---
PROCEDURE: STROKE BRAIN/HEAD WITHOUT CONT REASON FOR EXAM: Dizziness. Ataxic gait. TECHNIQUE: Multiple axial tomographic images were obtained without intravenous contrast administration. Coronal and sagittal reconstruction was obtained as well. COMPARISON: None. FINDINGS: Mild degree of cerebral atrophy. Mild degree of decreased attenuation in the periventricular distribution bilaterally suggestive of small-vessel disease no focal lesion is seen. No evidence of hydro cephalus. Atherosclerotic calcification of the cavernous portions of the internal carotid arteries bilaterally. CT/STROKE Brain/Head without Cont IMPRESSION: No acute abnormality is seen. The referring physician Dr. Mccain was notified of the results. One or more dose reduction techniques were used (e.g., Automated exposure contr ol, adjustment of the mA and/or kV according to patient size, use of iterative reconstruction technique). Reading Location: [place] [address]
--- NOTE | 2024-10-27 08:25 | CT_ITS ---
PROCEDURE: STROKE CTA HEAD AND NECK W/CON REASON FOR EXAM: Dizziness. Ataxic gait. TECHNIQUE: CTA imaging of the head and neck from the aortic arch to the skull vertex with intravenous contrast. 3D reconstructions. CONTRAST: 100 cc of Isovue 370 was injected intravenously. COMPARISON: Comparison is made with prior unenhanced CT scan of the brain done earlier in the day. FINDINGS: Aortic Arch: Normal size and branching pattern. No significant atherosclerotic plaque. Brachiocephalic and Subclavians: Unremarkable RIGHT Carotid: Right CCA: Unremarkable. Right ICA: Minimal plaque at the origin of the right internal carotid artery causing less than 50% stenosis. Right ECA: Unremarkable. LEFT Carotid: Left CCA: Unremarkable. Left ICA: Calcific plaque at the origin of left internal carotid artery causing approximately 60% narrowing. Maximum stenosis (NASCET): 60 % Left ECA: Unremarkable. Vertebrals: Codominant. Arise from the subclavians. Both vertebrals form the basilar. RIGHT Vertebral: Unremarkable. LEFT Vertebral: Unremarkable. No intracranial aneurysms or large vascular malformations are identified. Anterior cerebral arteries: Unremarkable. Middle cerebral arteries: Unremarkable. Basilar artery: Unremarkable. Posterior cerebral arteries: Unremarkable. Other major branches of the posterior circulation: Unremarkable. Major venous structures: Unremarkable. Other findings: No lymphadenopathy. Lung apices are clear. Bones are unremarkable. CT/STROKE CTA Head AND Neck W/Con IMPRESSION: RIGHT CAROTID: Minimal plaque at the origin of the right internal carotid arter y with less than 50% stenosis. LEFT CAROTID: Moderate plaque at the origin of the left internal carotid artery causing approximately 60% stenosis. VERTEBRALS: Unremarkable INTRACRANIAL: Unremarkable One or more dose reduction techniques were used (e.g., Automated exposure contr ol, adjustment of the mA and/or kV according to patient size, use of iterative reconstruction technique). Reading Location: [place] [address]
--- NOTE | 2024-10-27 09:04 | RAD_ITS ---
PROCEDURE: CHEST 1 VIEW REASON FOR EXAM: Acute stroke suspected. Neuro deficit. TECHNIQUE: Frontal view of the chest. COMPARISON: Comparison is made with prior study dated May 17, 2024. FINDINGS: EKG electrodes are seen. The heart size is normal. The lungs are clear. Degenerative changes are identified within the thoracic spine. RAD/Chest 1 View IMPRESSION: The lungs are clear. No acute abnormality is seen. Reading Location: [facility]
[2024-10-27 09:08] LABS: Absolute Lymphocyte Count 1.19 X10^3/uL (0.83-4.51); Absolute Neutrophil Count 2.2 X10^3/uL (2.0-7.7); Basophil# 0.03 X10^3/uL; Basophil% 0.8 % (0-1); Eosinophil# 0.18 X10^3/uL; Eosinophils% 4.5 % (0-5); Hematocrit 40.5 % (37-47); Lymphocyte # 1.19 X10^3/ul (0.83-4.51); Lymphocyte % 29.8 % (19-41); Mean Corp Hgb Conc 32.1 g/dL (32-36); Mean Corpuscular Hgb 29.8 pg (27.0-32.0); Mean Corpuscular Volume 92.9 fL (81-99); Mean Platelet Vol. 9.2 fl (6.2-12.0); Monocyte# 0.35 X10^3/uL; Monocyte% 8.8 % (0-10); NRBC Flagged by Analyzer 0 % (0-5); Neutrophil # 2.23 X10^3/uL (2.7-7.7); Neutrophil % 55.8 % (47-70); Platelet Count 279 K/mm3 (150-450); Red Blood Count 4.36 M/mm3 (4.2-5.4)
--- NOTE | 2024-10-27 09:20 | ED.VIS.STROK ---
HPI History of Present Illness Chief Complaint: Dizziness Detail of Chief Complaint: Vertigo Informant: patient and spouse/S.O. Onset/Context/Timing Onset: Days (Friday) Context: Sudden Onset Timing: Continuous Quality and Location: Positive for Difficulty with Ambulation Onset: Friday Current Severity: Mild Maximum Severity: Moderate Worsened by: Nothing Relieved by: Nothing Associated Symptoms Associated Symptoms: Positive for Nausea; Negative for Headache, Vomiting or Chest Pain Narrative Narrative: Patient is a 69-year-old woman. She has no significant past medical history. She presents with vertigo. She believes she has an inner ear problem. She was seen at urgent care on Friday. She apparently had cerumen in her external auditory canal. She states the symptoms started yesterday morning. Her corrected her and stated that it started the night before. She agrees that it started the night before. She is having trouble ambulating. She denies double vision, blurred vision, loss of vision or change in vision. She denies ringing or ears or decreased hearing. She denies upper respiratory infectious symptoms. She denies cardiac or respiratory symptoms. The only GI symptom she has is nausea. She denies paresthesia, anesthesia or motor weakness upper lower extremity. She denies problems with fine motor skills. Prior similar symptoms: No Recent Illness/Hospitalization: No [facility] Medical History GERD (gastroesophageal reflux disease) Sinusitis Anxiety and depression Hemorrhoids Osteoarthritis Home Medications ?Medication ?Instructions ?Recorded ?Last Taken ?Type spironolactone 25 mg tablet 25 mg PO DAILY 12/17/18 Unknown History trazodone 100 mg tablet 100 mg PO QHS 02/23/20 Unknown History escitalopram oxalate 5 mg tablet 20 mg PO DAILY 02/24/20 Unknown History (Lexapro) olopatadine 0.2 % eye drops 1 drp ophthalmic (eye) DAILY 04/03/21 Unknown History omeprazole 40 mg capsule,delayed 40 mg PO DAILY 04/03/21 Unknown History release clotrimazole 1 % topical cream 1 applic topical .COMPLEX #30 grams 10/01/22 Unknown Rx estradiol 2 mg (7.5 mcg/24 hour) 1 vag ring vaginal [id number] #1 ea 08/24/24 Unknown Rx vaginal ring (Estring) Allergy/AdvReac Type Severity Reaction Status Date / Time levofloxacin (From Levaquin) Allergy Mild Unknown Verified 10/27/24 08:15 sertraline (From Zoloft) Allergy Mild Unknown Verified 10/27/24 08:15 Family History Grandmother Diabetes Father CVA (cerebral vascular accident) Surgical History History of colonoscopy (~2010) H/O: H/O bilateral hip replacements Social History Smoking Status: Never smoker alcohol intake: current alcohol intake frequency: a few times a week substance use type: does not use diet: vegetarian well-balanced diet: daily or most days caffeine: Yes what type of physical activity do you participate in: bicycling and weight training seatbelt use: always do you feel safe at home: Yes ROS ROS ED Constitutional Constitutional ED: Denies chills, fever(s), subjective or sweats Eyes Eyes: Denies blurry vision, change in vision or diplopia ENT ENT ED: Denies ear pain, rhinorrhea or sore throat Cardiovascular Cardiovascular: Denies chest pain or palpitations Respiratory/Chest Respiratory/Chest: Denies cough, dyspnea or dyspnea on exertion Gastrointestinal Gastrointestinal: Reports nausea; Denies abdominal pain or vomiting Musculoskeletal Musculoskeletal: Denies arthralgias, myalgias or neck pain Integumentary Denies rash Neurologic Neurologic: Reports other Details: Difficulty ambulating. ; Denies headache(s), paresthesias or weakness Psychiatric Psychiatric: Denies anxiety Endocrine Endocrinology: Denies polydipsia or polyphagia Hematologic/Lymphatic Hematologic/Lymphatic: Denies easy bleeding or easy bruising EXAM Physical Exam Const Vital Signs: 10/27/24 08:14 10/27/24 08:48 Temperature 98.1 F Temperature Source Temporal Pulse Rate 52 L Respiratory Rate 17 Blood Pressure 134/62 H Blood Pressure Mean 86 Pulse Ox 100 98 Oxygen Delivery Method Room Air Room Air Positive well nourished and well developed General Appearance ED: well developed and NAD HEENT Reports TM's clear and moist mucous membranes atraumatic Tympanic Membrane ED: Yes TM's clear Eyes PERRL and EOMs intact bilaterally Eyes Narrative: There is no nystagmus. Pupils equal round reactive. Extract muscle intact. There is no visual field cut. General Eye ED: Negative for pale conjunctiva or scleral icterus Neck no lymphadenopathy, supple and no JVD Chest Wall inspection of chest normal and palpation of chest normal Resp normal respiratory effort and clear to auscultation bilaterally GI normal to inspection, nondistended, normoactive bowel sounds, soft to palpation, non-tender, non-distended and no masses Back/Spine no CVA tenderness Thoracic Spine / Upper Back: Negative for thoracic spinal tenderness Lumbar Spine / Lower Back: Negative for lumbar spinal tenderness Neuro oriented x3, CN's II-XII intact bilaterally and no sensory deficits noted [place] Coma Scale: document GCS findings Spontaneous Obeys Commands Oriented 15 Sensorium / Orientation: alert Speech: speech normal Gait (Neuro): Negative for normal gait Motor Exam: strength 5/5 throughout Psych mental status grossly normal Skin no wounds Lesions: no lesions Rashes: no rashes NIHSS NIHSS Initial: 1a Level of Consciousness: 0 1b LOC Questions (Score 2 if aphasic/stupor): 0 1c LOC Commands (Only score 1st attempt): 0 2 Best Gaze (If aphasic, use reflexive mvmts.): 0 3 Visual: 0 4 Facial Palsy: 0 5 Motor Arm Right (UN = amputation/fusion): 0 5 Motor Arm Left: 0 6 Motor Leg Right: 0 6 Motor Leg Left: 0 7 Limb ataxia (Only + if out of proportion): 0 8 Sensory (Aphasia/stupor=0 or 1, coma=2): 0 9 Best Language: 0 10 Dysarthria (mute, coma=2, intubated=UN): 0 11 Extinction and Inattention (only scored if +): 0 Total Score: 0 MDM MDM MDM Narrative Medical decision making narrative: Patient with vertigo. Patient's symptoms are not consistent with benign positional vertigo. There is no cerumen impaction explain her continuous symptoms. Furthermore there is no evidence of an ear infection. There is no exacerbation with change in position. The eye askew test was negative. Gait was observed and she has ataxic gait. History & Record Review Discussion w/independent historian: Patient and Significant other Lab Data Attestation: I reviewed the patient's lab results. Lab results narrative: Patient is neutropenic. Coags are normal. Labs: Laboratory Results - last 24 hr 02/19/25 08:45 WBC 4.0 L RBC 4.36 Hgb 13.0 Hct 40.5 MCV 92.9 MCH 29.8 MCHC 32.1 RDW Std Deviation 44.0 H RDW Coeff of Alex 13.0 Plt Count 279 MPV 9.2 Immature Gran % (Auto) 0.300 Neut % (Auto) 55.8 Lymph % (Auto) 29.8 [place] % (Auto) 8.8 Eos % (Auto) 4.5 Baso % (Auto) 0.8 Absolute Neuts (auto) 2.2 Absolute Lymphs (auto) 1.19 Nucleated RBC % 0 PT 13.0 INR 1.0 APTT 28.0 Sodium 140 Potassium 4.1 Chloride 108 H Carbon Dioxide 30.0 Anion Gap 2 L BUN 18 Creatinine 0.88 Estim Creat Clear Calc 55.06 Est GFR (MDRD) Af Amer 82 Est GFR (MDRD) Non-Af 68 BUN/Creatinine Ratio 20.4 H Glucose 113 H Calcium 8.9 Troponin I High Sens 4 Radiography Chest X-Ray - ED: 1 View, Read by ED Physician (Reviewed interpreted by me at 0910.), Unchanged, Heart, Lungs, Mediastinum, Bony Structures and No Acute Disease Diagnostic Testing: Clinical Impression(s) from Imaging Studies Brain CT 10/27/24 08:24 IMPRESSION: No acute abnormality is seen. The referring physician Dr. Mccain was notified of the results. One or more dose reduction techniques were used (e.g., Automated exposure control, adjustment of the mA and/or kV according to patient size, use of iterative reconstruction technique). Reading Location: [facility] Head/Neck CTA 10/27/24 08:25 IMPRESSION: RIGHT CAROTID: Minimal plaque at the origin of the right internal carotid artery with less than 50% stenosis. LEFT CAROTID: Moderate plaque at the origin of the left internal carotid artery causing approximately 60% stenosis. VERTEBRALS: Unremarkable INTRACRANIAL: Unremarkable One or more dose reduction techniques were used (e.g., Automated exposure control, adjustment of the mA and/or kV according to patient size, use of iterative reconstruction technique). Reading Location: [facility] Chest X-Ray 10/27/24 09:04 IMPRESSION: The lungs are clear. No acute abnormality is seen. Reading Location: [facility]--[address] call [address] Levon Hardy regarding unenhanced scan. Unenhanced scan revealed no acute abnormality EKG Initial EKG: Attestation: I personally reviewed and interpreted this EKG as follows: Interpretation: Sinus Bradycardia (Sinus bradycardia rate of 55. [place] to the left. ID interval is 156 msDuration 88 ms. QT duration 456 ms axis is -43.) Management Discussion w/another healthcare provider: Hospitalist (Spoke with Dr. Azar. She has accepted patient. Patient was admitted to PCU observation status) Discharge Plan Dx/Rx/DC Orders Clinical Impression: Ataxia, Vertigo Disposition Disposition: Acute Care Hospital [facility]
[2024-10-27 09:41] LABS: Anion Gap 2 (5-15); BUN 18 mg/dL (7-18); BUN/Creat Ratio 20.4 RATIO (10-20); Calcium,Total 8.9 mg/dL (8.5-10.1); Chloride 108 mmol/L (98-107); Creatinine, Serum 0.88 mg/dL (0.55-1.02); EST Glomerular Filtration Rate 68 mL/min (>60); Est Glom Filt Rate - Afr Amer 82 mL/min (>60); Estimated Creatinine Clearance 55.06 ml/min; Glucose 113 mg/dL (74-106); Potassium 4.1 mmol/L (3.5-5.1); Sodium Level 140 mmol/L (136-145); Troponin-I HS 4 pg/mL (3.0-54.0)
--- NOTE | 2024-10-27 09:53 | HP.PCM.HOS_ITS ---
HPI - General General Date of Admission: 10/27/24 Date of Service: 10/27/24 Chief Complaint: dizziness and vertigo HPI Narrative VIRA MORROW, is a 69 F with a PMH as outlined who presents via the ED on 10/27/2024 with a complaint of dizziness and vertigo. She had wax removed from her ear two days prior to admission at an Urgent Care. She subsequently started having dizziness and vertigo symptoms. She had trouble walking also due to the dizziness. She denied any cough, chest pain, palpitations, slurred speech, blurred vision, ringing in her ears or any change in vision. She denied any nausea, vomiting or any other symptoms. Review of systems is otherwise negative. Vitals in the ED were temperature of 98.1F, TX of 52, Bp of 134/62 and RR of 17. She was saturating at 100% on room air. CBC showed hb of 13, wbc of 4 and platelets of 279. INR was 1. Chemistry showed sodium of 140, potassium of 4.1 and Cr of 0.88. CT brain showed no acute intracranial pathology. CTA head and neck showed minimal plaque at the origin of the right internal carotid artery with <50% tenosis, and moderate plaque at the origin of the left inernal carotid artery causing ~ 60% stenosis. CXR showed on acute cardiopulmonary pathology. She is being admitted to be managed for dizziness and vertigo to rule out a stroke. [facility] Medical History GERD (gastroesophageal reflux disease) Sinusitis Anxiety and depression Hemorrhoids Osteoarthritis Home Medications ?Medication ?Instructions ?Recorded ?Last Taken ?Type spironolactone 25 mg tablet 25 mg PO DAILY 12/17/18 Un known History trazodone 100 mg tablet 100 mg PO QHS 02/23/20 Unkno wn History escitalopram oxalate 5 mg tablet 20 mg PO DAILY Unknown History (Lexapro) olopatadine 0.2 % eye drops 1 drp ophthalmic (eye) [place] LY 04/03/21 Unknown History omeprazole 40 mg capsule,delayed 40 mg PO DAILY Unknown History release clotrimazole 1 % topical cream 1 applic topical .COMPL EX #30 grams 10/01/22 Unknown Rx estradiol 2 mg (7.5 mcg/24 hour) 1 vag ring vaginal Q3 MONTHS #1 ea 08/24/24 Unknown Rx vaginal ring (Estring) Allergy/AdvReac Type Severity Reaction Status Date / Time levofloxacin (From Levaquin) Allergy Mild Unknown Verified 10/27/24 08:15 sertraline (From Zoloft) Allergy Mild Unknown Verified 10/27/24 08:15 Family History Grandmother Diabetes Father CVA (cerebral vascular accident) Surgical History History of colonoscopy (~2010) H/O: H/O bilateral hip replacements Social History Smoking Status: Never smoker alcohol intake: current alcohol intake frequency: a few times a week substance use type: does not use diet: vegetarian well-balanced diet: daily or most days caffeine: Yes what type of physical activity do you participate in: bicycling and weight training seatbelt use: always do you feel safe at home: Yes ROS Constitutional Constitutional: Reports fatigue and malaise; Denies anorexia, change in weight, chills, fever(s) or weakness Eyes Eyes: Denies blurry vision or change in vision ENT HEENT: Reports other Details: hearing impairment ; Denies abnormal hearing or headache(s) Cardiovascular Cardiovascular: Denies chest pain, dyspnea on exertion, edema, lightheadedness, orthopnea, palpitations, paroxysmal nocturnal dyspnea or rapid heart rate Respiratory/Chest Respiratory/Chest: Denies cough, dyspnea, shortness of breath at rest or shortness of breath with exertion Gastrointestinal Gastrointestinal: Denies abdominal pain or constipation Genitourinary Genitourinary: Denies burning urination or dysuria Musculoskeletal Musculoskeletal: Denies arthralgias Neurologic Neurologic: Reports abnormal gait and disequilibrium; Denies confusion, dizziness, focal weakness or headache(s) Psychiatric Psychiatric: Denies anxiety or depression Vital Signs Vital Signs Vital Signs: 10/27/24 08:14 10/27/24 08:48 Temperature 98.1 F Temperature Source Temporal Pulse Rate 52 L Respiratory Rate 17 Blood Pressure 134/62 H Blood Pressure Mean 86 Pulse Ox 100 98 Oxygen Delivery Method Room Air Room Air Weight Weight: 132 lb Body Mass Index (BMI) 21.9 Physical Exam Const alert, oriented x3, no apparent distress and average body habitus General Appearance: cooperative HEENT normocephalic, head/scalp atraumatic, hearing grossly normal bilaterally, moist oral mucous membranes and oropharynx normal Mouth: oral and palatal mucosa normal Eyes PERRL, EOMs intact bilaterally and conjunctivae normal Neck no lymphadenopathy and supple Resp normal respiratory effort, no retractions, no use of accessory muscles and clear to auscultation bilaterally Cardio regular rate, regular rhythm, S1 normal heart sound, S2 normal heart sound and no murmurs GI normal to inspection, nondistended, normoactive bowel sounds, soft to palpation, non-tender and non-distended Extremity normal to inspection, full ROM and no clubbing, cyanosis or edema Neuro oriented x3, CN's II-XII intact bilaterally, moves all extremities and no focal motor deficits Sensorium / Orientation: awake and alert Motor Exam: strength 5/5 throughout Psych affect normal Results Lab / Micro Data 10/27/24 08:45 10/27/24 08:45 Labs: Laboratory Results - last 24 hr 10/27/24 08:45: WBC 4.0 L, RBC 4.36, Hgb 13.0, Hct 40.5, MCV 92.9, MCH 29.8, MCHC 32.1, RDW Std Deviation 44.0 H, RDW Coeff of Alex 13.0, Plt Count 279, MPV 9.2, Immature Gran % (Auto) 0.300, Neut % (Auto) 55.8, Lymph % (Auto) 29.8, [place] % (Auto) 8.8, Eos % (Auto) 4.5, Baso % (Auto) 0.8, Absolute Neuts (auto) 2.2, Absolute Lymphs (auto) 1.19, Nucleated RBC % 0, PT 13.0, INR 1.0, APTT 28.0, Sodium 140, Potassium 4.1, Chloride 108 H, Carbon Dioxide 30.0, Anion Gap 2 L, BUN 18, Creatinine 0.88, Estim Creat Clear Calc 55.06, Est GFR (MDRD) Af Amer 82, Est GFR (MDRD) Non-Af 68, BUN/Creatinine Ratio 20.4 H, Glucose 113 H, Calcium 8.9, Troponin I High Sens 4 Imaging Radiology Impression Brain CT 02/19/25 08:24 IMPRESSION: No acute abnormality is seen. The referring physician Dr. Mccain was notified of the results. One or more dose reduction techniques were used (e.g., Automated exposure control, adjustment of the mA and/or kV according to patient size, use of iterative reconstruction technique). Reading Location: [facility] Head/Neck CTA 10/27/24 08:25 IMPRESSION: RIGHT CAROTID: Minimal plaque at the origin of the right internal carotid artery with less than 50% stenosis. LEFT CAROTID: Moderate plaque at the origin of the left internal carotid artery causing approximately 60% stenosis. VERTEBRALS: Unremarkable INTRACRANIAL: Unremarkable One or more dose reduction techniques were used (e.g., Automated exposure control, adjustment of the mA and/or kV according to patient size, use of iterative reconstruction technique). Reading Location: [facility] Chest X-Ray 10/27/24 09:04 IMPRESSION: The lungs are clear. No acute abnormality is seen. Reading Location: [facility] Assessment & Plan Assessment/Plan (1) Vertigo: (2) Ataxia: PLAN: Plan #Dizziness and vertigo to rule out a stroke * symptoms started 2 days prior to admission. She has associated ataxic gait * CT brain showed no acute intracranial pathology * CTA head and neck as per HPI * will place on PO aspirin. NIHSS was 0 on admission * get MRI of hte brain and 2D echo * get carotid USG * admit per stroke protocol to PCU * consult teleneurology * PT/OT consult * #Moderate right carotid artery stenosis * CTA head and neck showed moderate plaque at origin of right internal carotid artery, with 60% stenosis * get carotid usg to better evaluate * lipid profile ordered. * #bradycardia * HR was down in the 40s and 50s on admisison. This may also be contributing to her symptoms. * EKG showed no acute ST changes * 2D echo ordered * will benefit from event monitor on discharge * #GERD: on PPI #Anxiety and depression:on escitalopram and trazodone DVT prophylaxis: SCDs Code status: * full code * Patient and counseled extensively about different types of CODE STATUS including full code, DNR CCA and DNR CCA. Patient elects to be full code. * Total [id number] time 16 minutes. Charges/Coding Visit Charges Inpatient E&M: 35707 Init Hosp L2 Procedures Hospitalists Procedures: 60331 Advncd Care Plan 30 Min
--- NOTE | 2024-10-27 11:17 | ECHOD_ITS ---
Reason For Study Reason For Study: TIA/CVA Procedure This was a 2D Doppler, Color Flow transthoracic echocardiogram. Exam performed portable in ICU/CCU. Left Ventricle Normal size and thickness. The left ventricular ejection fraction is 65 %. Normal diastology for age. Right Ventricle Normal right ventricle. Atria The left and right atria are normal. No bubble study done. Mitral Valve Trivial mitral valve insufficiency. Tricuspid Valve Trivial tricuspid valve insufficiency. Normal pulmonary artery pressure. Aortic Valve Trisinus/trileaflet aortic valve. Pulmonic Valve Mild (1+) pulmonic valve insufficiency. Great Vessels Normal sized aortic root. Pericardium/Pleural No pericardial effusion. MMode/2D Measurements & Calculations LVIDd: 4.8 cm IVSd: 1.0 cm Ao root diam: 3.4 cm LVIDs: 2.6 cm LVPWd: 0.92 cm RVDd: 3.6 cm FS: 45.8 % LAV(MOD-bp): 44.1 ml LVAd ap4: 25.3 cm2 SV(MOD-sp4): 48.1 ml LAV(MOD-bp) Indexed: 26.6 ml/m2 LVLd ap4: 7.3 cm SI(MOD-sp4): 29.0 ml/m2 LAV(MOD-sp2): 48.5 ml EDV(MOD-sp4): 73.3 ml LAV(MOD-sp4): 32.1 ml EDV(sp4-el): 74.6 ml LVAs ap4: 13.6 cm2 LVLs ap4: 6.3 cm ESV(MOD-sp4): 25.2 ml ESV(sp4-el): 24.8 ml EF(MOD-sp4): 65.6 % EF(sp4-el): 66.7 % SV(sp4-el): 49.8 ml LA A4 area: 13.2 cm2 LA dimension(2D): 3.2 cm RA A4 area: 13.9 cm2 Time Measurements MV dec time: 0.27 sec Doppler Measurements & Calculations MV E max jacek: 59.9 cm/sec Lat Peak E' Jacek: 9.3 cm/sec Med Peak E' Jacek: 11.2 cm/sec MV A max jacek: 75.4 cm/sec E/E' lat: 6.5 E/E' med: 5.4 MV E/A: 0.79 MV V2 max: 100.3 cm/sec MV P1/2t max jacek: 71.2 cm/sec Ao V2 max: 107.8 cm/sec MV max P.0 mmHg MV P1/2t: 94.2 msec Ao max P.6 mmHg MV V2 mean: 44.3 cm/sec MV mean P.98 mmHg MV dec slope: 221.3 cm/sec2 MV V2 VTI: 32.8 cm MVA(P1/2t): 2.3 cm2 LV V1 max: 89.4 cm/sec PA V2 max: 110.8 cm/sec LV V1 max P.2 mmHg PI dec slope: 136.6 cm/sec2 TR max jacek: 238.8 cm/sec TR max P.8 mmHg ECHO/Echo Complete Interpretation Summary The left ventricular ejection fraction is 65 %. Mild (1+) pulmonic valve insufficiency. Ordering Physician: Luz Rosario Performed By: Oleksandr Caal RCS
--- NOTE | 2024-10-27 11:17 | MRI_ITS ---
PROCEDURE: MRI brain without IV contrast REASON FOR EXAM: Vertigo, dizziness TECHNIQUE: Multisequence multiplanar MR images of the brain were obtained without the administration of intravenous contrast. Imaging sequences were performed to best displaced suspected pathology COMPARISON: 10/27/2024 FINDINGS: No diffusion restriction to suggest acute/subacute ischemia. No evidence of acute intracranial hemorrhage, midline shift or mass effect. Cerebral volume is age-appropriate. No hydrocephalus. Mild scattered bilateral hyperintense FLAIR signal foci in the supratentorial white matter likely related to chronic small-vessel ischemic disease. No cortical edema. Globes are intact. Paranasal sinuses and mastoid air cells are clear. MRI/Brain without Contrast IMPRESSION: 1. No acute intracranial abnormality. 2. Mild chronic small-vessel ischemic disease. Reading Location: [facility]
[2024-10-27 12:04] LABS: Troponin-I HS 4 pg/mL (3.0-54.0)
[2024-10-27 16:41] LABS: Troponin-I HS < 3 pg/mL (3.0-54.0)
--- NOTE | 2024-10-27 17:03 | CDU_ITS ---
Reason For Study Reason For Study: Carotid Artery Stenosis Rt. Velocities/BP Lt. Velocities/BP Prox CCA 63.9/17.6 cm/sec. Prox CCA 75.6/20.4 cm/sec. Mid CCA 77.1/26.1 cm/sec. Mid CCA 77.6/25.9 cm/sec. Dist CCA 84.6/26.1 cm/sec. Dist CCA 76.5/27.0 cm/sec. Prox ICA 66.7/31.7 cm/sec. Prox ICA 74.3/25.9 cm/sec. Mid ICA 94.2/33.4 cm/sec. Mid ICA 95.2/36.9 cm/sec. Dist ICA 103.9/32.7 cm/sec. Dist ICA 58.5/24.5 cm/sec. Rt. ICA/CCA = 1.3. Lt. ICA/CCA = 1.2. Prox ECA 80.9/12.8 cm/sec. Prox ECA 66.0/8.4 cm/sec. Rt. Vert. 43.8/17.5 cm/sec. Lt. Vert. 52.3/9.3 cm/sec. Right Extracranial There is intimal thickening but no significant atherosclerotic plaque noted in the right common carotid artery. There is heterogeneous, irregular atherosclerotic plaque noted in the right internal carotid artery. There is intimal thickening but no significant atherosclerotic plaque noted in the right external carotid artery. Antegrade flow is noted in the right vertebral artery. Left Extracranial There is intimal thickening but no significant atherosclerotic plaque noted in the left common carotid artery. There is heterogeneous, irregular atherosclerotic plaque noted in the left internal carotid artery. There is heterogeneous, irregular atherosclerotic plaque noted in the left external carotid artery. Antegrade flow is noted in the left vertebral artery. Procedure Carotid Duplex 50550. This is a Carotid Duplex examination using B-mode, color flow and specral Doppler. The exam was diagnostic. Exam performed in department. VL/Carotid Duplex Ultrasound Interpretation Summary Mild (<50%) stenosis right extracranial internal carotid. Mild (<50%) stenosis left extracranial internal carotid. Flow within the vertebral arteries is antegrade bilaterally. Ordering Physician: Luz Rosario Referring Physician: Mike Ferro Performed By: Gui Domínguez RVT
[2024-10-28 00:18] VITALS: BP 129/67; PULSE 61; RESP 16; TEMP 36.8; O2SAT 98
[2024-10-28 04:10] VITALS: BP 126/69; PULSE 53; RESP 18; TEMP 37; O2SAT 98
[2024-10-28 07:47] LABS: Absolute Lymphocyte Count 1.48 X10^3/uL (0.83-4.51); Absolute Neutrophil Count 2.4 X10^3/uL (2.0-7.7); Basophil# 0.03 X10^3/uL; Basophil% 0.7 % (0-1); Eosinophil# 0.13 X10^3/uL; Eosinophils% 2.9 % (0-5); Hemoglobin 13.9 g/dL (12.0-15.0); Lymphocyte # 1.48 X10^3/ul (0.83-4.51); Lymphocyte % 33.4 % (19-41); Mean Corp Hgb Conc 32.3 g/dL (32-36); Mean Corpuscular Hgb 29.7 pg (27.0-32.0); Mean Corpuscular Volume 91.9 fL (81-99); Mean Platelet Vol. 9.4 fl (6.2-12.0); Monocyte# 0.36 X10^3/uL; Monocyte% 8.1 % (0-10); NRBC Flagged by Analyzer 0 % (0-5); Neutrophil # 2.42 X10^3/uL (2.7-7.7); Neutrophil % 54.7 % (47-70); Platelet Count 321 K/mm3 (150-450); RBC Distribution Width CV 12.8 % (11.6-14.6); RBC Distribution Width SD 43.3 fl (35.1-43.9); Red Blood Count 4.68 M/mm3 (4.2-5.4); White Blood Count 4.4 K/mm3 (4.4-11.0)
[2024-10-28] MEDS: Ondansetron 4 MG/2 ML Vial IV (08:27)
[2024-10-28] MEDS: 0.9% Saline Lock 10 ML Syringe IV (08:27)
[2024-10-28 08:28] VITALS: BP 138/84; PULSE 59; RESP 16; TEMP 36.7; O2SAT 98
[2024-10-28 08:33] LABS: Anion Gap 5 (5-15); BUN 15 mg/dL (7-18); Calcium,Total 8.7 mg/dL (8.5-10.1); Chloride 106 mmol/L (98-107); Cholesterol 208 mg/dL (200); Creatinine, Serum 0.88 mg/dL (0.55-1.02); EST Glomerular Filtration Rate 68 mL/min (>60); Est Glom Filt Rate - Afr Amer 82 mL/min (>60); Estimated Creatinine Clearance 52.84 ml/min; Glucose 101 mg/dL (74-106); High Density Lipoprotein 74 mg/dL; Sodium Level 140 mmol/L (136-145); Triglycerides 115 mg/dL; Very Low Density Lipoprotein 23 mg/dL (5-40)
--- NOTE | 2024-10-28 10:51 | CASEMGMT ---
Met with patient to complete REID form. REID form explained to patient who voiced understanding and signed form. Original form placed in pt?s chart and copy provided to patient. Lyndsey Balderrama, Discharge Planning Asst
--- NOTE | 2024-10-28 11:34 | CASEMGMT ---
Social Work PHQ9 depression screen not completed at this time as MRI is negative. REY Heath
[2024-10-28] MEDS: Pantoprazole Sodium 40 MG Tablet PO (12:29)
--- NOTE | 2024-10-28 13:34 | NEURO.CONS ---
Assessment and Plan: Neuro Assessment/Plan VIRA MORROW is a 69 F with a past medical history of recent cerumen disimpaction, being evaluated by Teleneurology for vertigo. Based on the history, suggestive of a neuronal vestibular etiology likely related from increased sensitivity after the cerumen disimpaction. Patient is improving and no evidence of severe vertigo on exam. Imaging is also benign. No further workup necessary, consider PT for vestibular therapy outpatient if symptoms continue. I personally attended this patient and spent a total time of 45minutes evaluating this patient including clinical assessment, review of chart, medical history imaging, and determining appropriate treatment and workup. HPI Consult Data Date of Consult: 11/10/24 HPI Narrative HPI Narrative: VIRA MORROW, is a 69 F with a PMH as outlined who presents via the ED on 10/27/2024 with a complaint of dizziness and vertigo. She had wax removed from her ear two days prior to admission at an Urgent Care. She subsequently started having dizziness and vertigo symptoms. She had trouble walking also due to the dizziness. She denied any cough, chest pain, palpitations, slurred speech, blurred vision, ringing in her ears or any change in vision. She denied any nausea, vomiting or any other symptoms. Review of systems is otherwise negative. Neurologic History: Pt is still dizzy, now just lightheaded and still not steady on her feet. Nothing like this has happened before. A couple days ago patient had a bad ear plug and got washed out in the R ear. alsways has tinnitus in both ears. Some decreased hearing in the R ear (was worse before the washout) and had increased fullness in the R eas as well. No falls prior to coming to hospital. Was going to get to bedroom bs the room was spinning a little. Woke next day and symptoms were a lot worse. Was bad in the AM and got better through the day. She noted that her room was not exactly spinning but tilting side to side. This morning woke up and was not as bad. No slurred speech or double vision. [facility] Medical History GERD (gastroesophageal reflux disease) Sinusitis Anxiety and depression Hemorrhoids Osteoarthritis Home Medications ?Medication ?Instructions ?Recorded ?Last Taken ?Type spironolactone 25 mg tablet 25 mg PO DAILY 12/17/18 Unknown History trazodone 100 mg tablet 100 mg PO QHS 02/23/20 Unknown History escitalopram oxalate 5 mg tablet 20 mg PO DAILY 02/24/20 Unknown History (Lexapro) olopatadine 0.2 % eye drops 1 drp ophthalmic (eye) DAILY 04/03/21 Unknown History omeprazole 40 mg capsule,delayed 40 mg PO DAILY 04/03/21 Unknown History release clotrimazole 1 % topical cream 1 applic topical .COMPLEX #30 grams 10/01/22 Unknown Rx estradiol 2 mg (7.5 mcg/24 hour) 1 vag ring vaginal [id number] #1 ea 08/24/24 Unknown Rx vaginal ring (Estring) atorvastatin 40 mg tablet 40 mg PO DAILY #30 tabs 10/28/24 Unknown Rx Allergy/AdvReac Type Severity Reaction Status Date / Time levofloxacin (From Levaquin) Allergy Mild Unknown Verified 10/27/24 08:15 sertraline (From Zoloft) Allergy Mild Unknown Verified 10/27/24 08:15 Family History Grandmother Diabetes Father CVA (cerebral vascular accident) Surgical History History of colonoscopy (~2010) H/O: H/O bilateral hip replacements Social History Smoking Status: Never smoker alcohol intake: current alcohol intake frequency: a few times a week substance use type: does not use diet: vegetarian well-balanced diet: daily or most days caffeine: Yes what type of physical activity do you participate in: bicycling and weight training seatbelt use: always do you feel safe at home: Yes Vital Signs Vital Signs Vital Signs: 10/27/24 16:16 10/27/24 20:24 10/27/24 20:57 Temperature 98.6 F 98.4 F Temperature Source Temporal Temporal Pulse Rate 59 L 63 Respiratory Rate 16 16 Blood Pressure 130/72 H 117/49 L Blood Pressure Mean 91 71 Blood Pressure Source Monitor Monitor Blood Pressure Position Semi-Fowlers Semi-Fowlers Blood Pressure Location Left Arm Left Arm Pulse Ox 98 98 Oxygen Delivery Method Room Air Room Air 10/28/24 00:18 10/28/24 04:10 10/28/24 08:28 Temperature 98.2 F 98.6 F 98.0 F Temperature Source Oral Temporal Oral Pulse Rate 61 53 L 59 L Respiratory Rate 16 18 16 Blood Pressure 129/67 H 126/69 H 138/84 H Blood Pressure Mean 87 88 102 Blood Pressure Source Monitor Monitor Monitor Blood Pressure Position Supine Semi-Fowlers Semi-Fowlers Blood Pressure Location Left Arm Left Arm Left Arm Pulse Ox 98 98 98 Oxygen Delivery Method Room Air Room Air Room Air Weight Weight: 59 kg Body Mass Index (BMI) 21.7 EEG Results Procedure Details EEG Procedure Details: VIRA MORROW is a 69 year old F with a past medical history of , who presents for evaluation of Electroencephalogram on DATE at TIME NIHSS NIHSS Nursing Documentation NIHSS Nursing Documentation: NIHSS: Ischemic Stroke/TIA Start: 10/27/24 11:17 Text: For ICU Patients: NIH sroke scale at Status: Complete presentation and every 2 hours or with change in RN caregiver Freq: [id number] Protocol: Activity Type Activity Date Activity User E-sign Co-sign Detail Recorded Client Recorded Date Recorded By Document 10/27/24 11:00 [facility] [id number] 10/27/24 13:33 [facility] 10/27/24 11:00 NIH Stroke Scale [NIHSS] A score of 0 is normal or asymptomatic . Total possible score is 42. Inpatient: RN or Physician to activate a stroke alert for onset of new stroke symptoms or with NIHSS increase >/= 3 points. Following change in neurological status, NIHSS will be performed per physician order or more frequently PRN. -1a. Level of Consciousness Alert; keenly responsive -1b. LOC Questions Answers BOTH questions correctly. -2. Best Gaze Normal -3. Visual No visual loss -5a. Left Arm No drift; arm holds 90 (or 45 ) degrees for full 10 seconds -5b. Right Arm No drift; arm holds 90 (or 45 ) degrees for full 10 seconds -6a. Left Leg No drift; leg holds 30-degree position for full 5 seconds -6b. Right Leg No drift; leg holds 30-degree position for full 5 seconds -7. Limb Ataxia Absent -8. Sensory Normal; no sensory loss -9. Best Language No aphasia; normal -10. Dysarthria Normal -11. Extinction and Inattention No abnormality -Total 0 Query Text:A score of 0 is normal or asymptomatic. Total possible score is 42 . ED: Notify Physician for NIHSS increase by > / = 3 points. Inpatient: RN or Physician to activate a stroke alert for NIHSS increase of > / = 3 points. NIHSS: Ischemic Stroke/TIA Start: 10/27/24 11:17 Text: For PCU Patients: NIH and Neuro Check every 4 Status: Complete hours, PRN and with change in RN caregiver. Freq: [id number] Protocol: Activity Type Activity Date Activity User E-sign Co-sign Detail Recorded Client Recorded Date Recorded By Document 10/27/24 16:17 [facility] [id number] 10/27/24 16:48 [facility] 10/27/24 16:17 -1a. Level of Consciousness Alert; keenly responsive -1b. LOC Questions Answers BOTH questions correctly. -1c. LOC Commands Performs both tasks correctly . -2. Best Gaze Normal -3. Visual No visual loss -4. Facial Palsy Normal symmetrical movements -5a. Left Arm No drift; arm holds 90 (or 45 ) degrees for full 10 seconds -5b. Right Arm No drift; arm holds 90 (or 45 ) degrees for full 10 seconds -6a. Left Leg No drift; leg holds 30-degree position for full 5 seconds -6b. Right Leg No drift; leg holds 30-degree position for full 5 seconds -7. Limb Ataxia Absent -8. Sensory Normal; no sensory loss -9. Best Language No aphasia; normal -10. Dysarthria Normal -11. Extinction and Inattention No abnormality -Total 0 Query Text:A score of 0 is normal or asymptomatic. Total possible score is 42 . ED: Notify Physician for NIHSS increase by > / = 3 points. Inpatient: RN or Physician to activate a stroke alert for NIHSS increase of > / = 3 points. Physical Exam Narrative -? General: Laying comfortably in bed; in no acute distress. -? HENT: Normal oropharynx and mucosa. Normal external appearance of ears and nose. Exophthalmos. -? Neck: Supple, no pain or tenderness -? CV:? No peripheral edema. -? Pulmonary:? Normal respiratory effort. -? Ext: No cyanosis, edema, or deformity -? Skin: No rash. Normal palpation of skin.? -? Musculoskeletal: full range of motion; no joint tenderness. Normal digits and nails by inspection. No clubbing. -? NEURO: -? Mental Status: The patient was alert and oriented to time, place, and person. Normal recent/remote memory, concentration, and general fund of knowledge. -? Language: speech is clear? Naming, repetition, fluency, and comprehension intact. -? Cranial Nerves: PERRL 3 mm/brisk. EOMI, visual snell full, no facial asymmetry, facial sensation intact, hearing intact, tongue midline, no evidence of atrophy or fibrillations. No evidence of nystagmus -? Motor: normal bulk, tone, and strength throughout. No pronator drift or satelliting. Upper and lower extremities equal bilaterally. -? Detailed strength exam as performed by the nurse/ALFONSO and witnessed by the physician: R L SA 5 5 EE 5 5 EF 5 5 WE WF Jogger Operator 5 5 HF KE KF DF PF -? -? Tone: is normal and bulk is normal -? Sensation- Intact to light touch bilaterally -? Coordination: No dysmetria on [id number], finger follow finger or [id number]. -? Gait- deferred Lab / Micro Data 10/28/24 06:44 10/28/24 06:44 Labs: Laboratory Results - last 24 hr 10/27/24 16:10: Troponin I High Sens < 3 L 10/28/24 06:44: WBC 4.4, RBC 4.68, Hgb 13.9, Hct 43.0, MCV 91.9, MCH 29.7, MCHC 32.3, RDW Std Deviation 43.3, RDW Coeff of Alex 12.8, Plt Count 321, MPV 9.4, Immature Gran % (Auto) 0.200, Neut % (Auto) 54.7, Lymph % (Auto) 33.4, [place] % (Auto) 8.1, Eos % (Auto) 2.9, Baso % (Auto) 0.7, Absolute Neuts (auto) 2.4, Absolute Lymphs (auto) 1.48, Nucleated RBC % 0, Sodium 140, Potassium 4.0, Chloride 106, Carbon Dioxide 28.0, Anion Gap 5, BUN 15, Creatinine 0.88, Estim Creat Clear Calc 52.84, Est GFR (MDRD) Af Amer 82, Est GFR (MDRD) Non-Af 68, BUN/Creatinine Ratio 17.0, Glucose 101, Calcium 8.7, Triglycerides 115, Cholesterol 208 H, LDL Cholesterol 111, VLDL Cholesterol 23, HDL Cholesterol 74 Imaging Radiology Impression Brain MRI 10/27/24 11:17 IMPRESSION: 1. No acute intracranial abnormality. 2. Mild chronic small-vessel ischemic disease. Reading Location: [facility] Echocardiogram 10/27/24 11:17 Interpretation Summary The left ventricular ejection fraction is 65 %. Mild (1+) pulmonic valve insufficiency. Ordering Physician: Luz Rosario Performed By: Oleksandr Caal RCS Active Medications Active Medications Active Medications: Current Medications Generic Name Dose Route Start Last Admin Trade Name Freq PRN Reason Stop Dose Admin Sodium Chloride 100 mls @ 15 mls/hr 10/27/24 11:30 IV .Q6H40M PRN Saline Flush Sodium Chloride 100 mls @ 15 mls/hr 10/27/24 11:30 IV .Q6H40M PRN Additional IVPB Infusion Nitroglycerin 0.4 mg 10/27/24 11:17 Nitroglycerin (Inpatient Use) 0.4 Mg Tab.Subl SL Q5M PRN CARDIAC/CHEST PAIN Ondansetron HCl 4 mg 10/27/24 11:17 10/28/24 08:27 Ondansetron 4 Mg/2 Ml Vial IV 4 mg Q8H PRN PRN Administration NAUSEA/VOMITING Pantoprazole Sodium 40 mg 10/28/24 12:30 10/28/24 12:29 Pantoprazole Sodium 40 Mg Tablet PO 40 mg DAILY DANIELLA Administration Sodium Chloride 10 - 40 ml 10/27/24 11:30 10/28/24 08:27 0.9% Saline Lock 10 Ml Syringe IV 10 ml UD PRN Administration SALINE FLUSH
--- NOTE | 2024-10-28 15:39 | DCINST_ITS ---
Discharge Instructions Diet Discharge Diet: Low fat / Low cholesterol DC O2, CPAP, BIPAP needs Home O2 Discharge instructions: No Dressing / Incision Discharge Activity: Return to Normal Activity Weight Bearing Status: Weight bearing as tolerated Dressing / Incision Call your doctor if you observe: Fever of 101 or Higher, Shortness of breath, Dizziness and Chest pain Follow Up Care Test Results: Test results from this visit will be discussed in further detail at your follow- up appointment, if applicable. Discharge Plan Admission Admit Date/Time: 10/27/24 10:03 Primary Reason for Your Visit: stroke like symptoms Attending Provider: Luz Rosario Primary Care Provider: Mike Ferro Consulting Providers: Agustín Nguyễn; Noah Rogers; Lora Goncalves; Bernice Banuelos; Guera Moscoso; Dalton Soto; Joanne Arevalo; Agustin Davalos; Luis Corona; Patrick Lomas; Yanni Frazier; Levy Howard; Leilani Carrasco; Anshu Michaud; Cheyenne Bruce; Richi Tomlinson; Aman Haynes; Amarjit Singh; Joanne Zhang; Luba Delgado Instructions Patient Instructions: TIA Dc Discharge Orders/Prescriptions Prescriptions: New atorvastatin 40 mg tablet 40 mg PO DAILY Qty: 30 2RF Continued spironolactone 25 mg tablet 25 mg PO DAILY escitalopram oxalate [Lexapro] 5 mg tablet 20 mg PO DAILY trazodone 100 mg tablet 100 mg PO QHS omeprazole 40 mg capsule,delayed release(DR/EC) 40 mg PO DAILY olopatadine 0.2 % drops 1 drp ophthalmic (eye) DAILY clotrimazole 1 % cream 1 applic topical .COMPLEX Qty: 30 1RF Rx Instructions: 1 applic topical 1 to 2 times daily prn; Estring 2 mg (7.5 mcg /24 hour) ring 1 vag ring vaginal [id number] Qty: 1 2RF Other Ambulatory Orders: 30 Day Event Recorder Preventi (Urgent) Timeframe: 1 Day Facility: [facility] - Location: Cardiovascular Services Ordered By: Dr. uLz Rosario Referrals / Follow Up: Mike Ferro MD [Primary Care Provider] - Within 1 Week Abhijeet Stanley MD [Med Staff - Active Staff] - Within 1 Month (follow up if dizziness recurs as it may be due to the ear wax accumulation) Disposition Disposition (needs filled in before D/C Order can be placed): Home, Self Care
--- NOTE | 2024-10-28 15:42 | DS.PCM_ITS ---
Providers Date of Admission: 10/27/24 Date of Discharge: 10/28/24 Primary Care Physician: Dr. Mike Ferro MD Consultations 10/27/24 11:17 Consult: Tele-Neurology Routine Consulting Provider: [facility] Reason for Consult: Acute Ischemic Stroke/TIA EMERGENT Consult: No MD Notified: Yes Date Notified: 10/27/24 Time Notified: 10:05 Method of Notification: [facility]sw[facility] Service Nursing Unit Staff Notify [facility] of Tele-Neurology Consult: Yes Reason For Visit: STROKE LIKE SYMPTOMS Diagnosis Discharge Diagnosis (1) Vertigo: Status: Acute Code(s): R42 - Dizziness and giddiness (2) Ataxia: Status: Acute Code(s): R27.0 - Ataxia, unspecified Plan #Dizziness and vertigo to rule out a stroke * symptoms started 2 days prior to admission. She has associated ataxic gait * CT brain showed no acute intracranial pathology * CTA head and neck as per HPI * will place on PO aspirin. NIHSS was 0 on admission * get MRI of hte brain and 2D echo * get carotid USG * admit per stroke protocol to PCU * consult teleneurology * PT/OT consult * #Moderate right carotid artery stenosis * CTA head and neck showed moderate plaque at origin of right internal carotid artery, with 60% stenosis * get carotid usg to better evaluate * lipid profile ordered. * #bradycardia * HR was down in the 40s and 50s on admisison. This may also be contributing to her symptoms. * EKG showed no acute ST changes * 2D echo ordered * will benefit from event monitor on discharge * #GERD: on PPI #Anxiety and depression:on escitalopram and trazodone DVT prophylaxis: SCDs Code status: * full code * Patient and counseled extensively about different types of CODE STATUS including full code, DNR CCA and DNR CCA. Patient elects to be full code. * Total wsdz-en-mmeh time 16 minutes. Medications at Discharge Home Medications spironolactone 25 mg tablet 25 mg PO DAILY 12/17/18 trazodone 100 mg tablet 100 mg PO QHS 02/23/20 escitalopram oxalate 5 mg tablet (Lexapro) 20 mg PO DAILY 02/24/20 olopatadine 0.2 % eye drops 1 drp ophthalmic (eye) DAILY 04/03/21 omeprazole 40 mg capsule,delayed release 40 mg PO DAILY 04/03/21 clotrimazole 1 % topical cream 1 applic topical .COMPLEX #30 grams 10/01/22 estradiol 2 mg (7.5 mcg/24 hour) vaginal ring (Estring) 1 vag ring vaginal [id number] #1 ea 08/24/24 atorvastatin 40 mg tablet 40 mg PO DAILY #30 tabs 10/28/24 Hospital Course Operations None Procedures 2-D Echocardiogram Summary of Care Provided Minutes Spent on Discharge: 52 Hospital Course: VIRA MORROW, is a 69 F with a PMH as outlined who presents via the ED on 10/27/2024 with a complaint of dizziness and vertigo. She had wax removed from her ear two days prior to admission at an Urgent Care. She subsequently started having dizziness and vertigo symptoms. She had trouble walking also due to the dizziness. She denied any cough, chest pain, palpitations, slurred speech, blurred vision, ringing in her ears or any change in vision. She denied any nausea, vomiting or any other symptoms. Review of systems is otherwise negative. Vitals in the ED were temperature of 98.1F, UT of 52, Bp of 134/62 and RR of 17. She was saturating at 100% on room air. CBC showed hb of 13, wbc of 4 and platelets of 279. INR was 1. Chemistry showed sodium of 140, potassium of 4.1 and Cr of 0.88. CT brain showed no acute intracranial pathology. CTA head and neck showed minimal plaque at the origin of the right internal carotid artery with <50% tenosis, and moderate plaque at the origin of the left inernal carotid artery causing ~ 60% stenosis. CXR showed on acute cardiopulmonary pathology. She was admitted to be managed for dizziness and vertigo to rule out a stroke. She had MRI of the brain which showed no evidence of a stroke. Patient was noted to have intermittent bradycardia with heart rate going down to the 30s so it was recommended that patient have a Holter monitor on discharge to evaluate for any underlying arrhythmia. Cholesterol levels done showed elevated total cholesterol levels with elevated LDL of 111. Patient was therefore started on p.o. atorvastatin. Due to the CT a findings. She had a carotid ultrasound with preliminary results showing no evidence of any hemodynamically significant carotid stenosis. Official read was pending. 2D echo done showed EF of 65% with mild pulmonary valve insufficiency. Neurology reviewed patient and thought that his symptoms might have been due to cerumen impaction as patient has says she had recently had wax removed from the ear 2 days prior to admission. Patient remained stable and was discharged home on 10/28/2024. She is to follow-up with her primary care doctor and is to follow-up with ENT if her dizziness recurs. She was also discharged on a 30-day event monitor. She was discharged with a prescription for p.o. atorvastatin 40 mg daily. She is follow-up with her primary care doctor within 1 to 2 weeks. Patient seen and examined prior to discharge. She had no active complaints. Her was by her bedside. She had an uneventful night. Review of systems otherwise negative. Labs and vitals reviewed. Home medication reviewed and reconciled. Physical Exam Const alert, oriented x3, no apparent distress and average body habitus General Appearance: cooperative and comfortable HEENT normocephalic, head/scalp atraumatic, hearing grossly normal bilaterally, moist oral mucous membranes and oropharynx normal Mouth: oral and palatal mucosa normal Eyes PERRL, EOMs intact bilaterally and conjunctivae normal Neck no lymphadenopathy and supple Resp normal respiratory effort, no retractions, no use of accessory muscles and clear to auscultation bilaterally Cardio regular rate, regular rhythm, S1 normal heart sound, S2 normal heart sound and no murmurs GI normal to inspection, nondistended, normoactive bowel sounds, soft to palpation, non-tender and non-distended Extremity normal to inspection, full ROM and no clubbing, cyanosis or edema Skin no rashes or lesions noted Neuro oriented x3, CN's II-XII intact bilaterally, moves all extremities and no focal motor deficits Sensorium / Orientation: awake and alert Motor Exam: strength 5/5 throughout Psych affect normal Weight / BMI Weight Weight: 130 lb 1.164 oz Body Mass Index (BMI) 21.7 ABG / Lab / Microbiology Data 10/28/24 06:44 10/28/24 06:44 Laboratory: Laboratory Results - last 24 hr 10/27/24 16:10: Troponin I High Sens < 3 L 10/28/24 06:44: WBC 4.4, RBC 4.68, Hgb 13.9, Hct 43.0, MCV 91.9, MCH 29.7, MCHC 32.3, RDW Std Deviation 43.3, RDW Coeff of Alex 12.8, Plt Count 321, MPV 9.4, Immature Gran % (Auto) 0.200, Neut % (Auto) 54.7, Lymph % (Auto) 33.4, [place] % (Auto) 8.1, Eos % (Auto) 2.9, Baso % (Auto) 0.7, Absolute Neuts (auto) 2.4, Absolute Lymphs (auto) 1.48, Nucleated RBC % 0, Sodium 140, Potassium 4.0, Chloride 106, Carbon Dioxide 28.0, Anion Gap 5, BUN 15, Creatinine 0.88, Estim Creat Clear Calc 52.84, Est GFR (MDRD) Af Amer 82, Est GFR (MDRD) Non-Af 68, BUN/Creatinine Ratio 17.0, Glucose 101, Calcium 8.7, Triglycerides 115, C holesterol 208 H, LDL Cholesterol 111, VLDL Cholesterol 23, HDL Cholesterol 74 Radiography Diagnostic Testing: Radiology Impression Brain MRI 10/27/24 11:17 IMPRESSION: 1. No acute intracranial abnormality. 2. Mild chronic small-vessel ischemic disease. Reading Location: [facility] Instructions Discharge Diet: Low fat / Low cholesterol Discharge Activity: Return to Normal Activity Weight Bearing Status: Weight bearing as tolerated Call your doctor if you observe: Fever of 101 or Higher, Shortness of breath, Dizziness and Chest pain DC O2, CPAP, BIPAP Needs Home O2 Discharge instructions: No DC home with Oxygen: No Meaningful Use Info Meaningful Use Meaningful Use Diagnoses (Choose all that apply): None applicable Ischemic Stroke Statin Dosing Therapy Reference: STATIN DOSE THERAPY REFERENCE: * Patients > 75 years receive moderate or high dose statin therapy. * Patients 75 years or YOUNGER should receive HIGH intensity statin dose unless contraindicated. You will be required to document reason for non-treatment if statin daily dose does not meet guidelines. HIGH DOSE STATIN THERAPY DAILY Atorvastatin > than or = to 40 mg Rosuvastatin > than or = to 20 mg Amlodipine + Atorvastatin > than or = to 2.5/40 mg Ezetimibe + Simvastatin 10/80 mg Simvastatin 80mg Discharge Plan Admission Admit Date/Time: 10/27/24 10:03 Primary Reason for Your Visit: stroke like symptoms Attending Provider: Luz Rosario Primary Care Provider: Mike Ferro Consulting Providers: Agustín Nguyễn; Noah Rogers; Lora Goncalves; Bernice Banuelos; Guera Moscoso; Dalton Soto; Joanne Arevalo; Agustin Davalos; Luis Corona; Patrick Lomas; Yanni Frazier; Levy Howard; Leilani Carrasco; Anshu Michaud; Cheyenne Bruce; Richi Tomlinson; Aman Haynes; Amarjit Singh; Joanne Zhang; Luba Delgado Instructions Patient Instructions: TIA Dc Discharge Orders/Prescriptions Prescriptions: New atorvastatin 40 mg tablet 40 mg PO DAILY Qty: 30 2RF Continued spironolactone 25 mg tablet 25 mg PO DAILY escitalopram oxalate [Lexapro] 5 mg tablet 20 mg PO DAILY trazodone 100 mg tablet 100 mg PO QHS omeprazole 40 mg capsule,delayed release(DR/EC) 40 mg PO DAILY olopatadine 0.2 % drops 1 drp ophthalmic (eye) DAILY clotrimazole 1 % cream 1 applic topical .COMPLEX Qty: 30 1RF Rx Instructions: 1 applic topical 1 to 2 times daily prn; Estring 2 mg (7.5 mcg /24 hour) ring 1 vag ring vaginal [id number] Qty: 1 2RF Other Ambulatory Orders: 30 Day Event Recorder Preventi (Urgent) Timeframe: 1 Day Facility: [facility] - Location: Cardiovascular Services Ordered By: Dr. Luz Rosario Referrals / Follow Up: Abhijeet Stanley MD [Med Staff - Active Staff] - Within 1 Month (follow up if dizziness recurs as it may be due to the ear wax accumulation) Mike Ferro MD [Primary Care Provider] - Within 1 Week Disposition Disposition (needs filled in before D/C Order can be placed): Home, Self Care Charges/Coding Visit Charges Inpatient E&M: 12515 Disch Hosp >30min
== END 2024-10-28 16:00 | disposition home or self-care (01) ==
LOC: ED 09:29 → ICU 10:47
PROVIDERS: Admitting Provider Student in an Organized Health Care Education/Training Program; Emergency Provider Emergency Medicine; PCP Family Medicine; Visit Provider Student in an Organized Health Care Education/Training Program
DX: R42 Dizziness and giddiness (principal); H93.13 Tinnitus, bilateral; K21.9 Gastro-esophageal reflux disease without esophagitis; R27.0 Ataxia, unspecified; F41.9 Anxiety disorder, unspecified; F32.A Depression, unspecified; Z79.899 Other long term (current) drug therapy; I65.21 Occlusion and stenosis of right carotid artery; R00.1 Bradycardia, unspecified
CPT/HCPCS: 36415; 70450; 70496; 70498; 70551; 71045; 80048; 80061; 84484; 85025; 85610; 85730; 93005; 93306; 93880; 96374; 97802; 99221; 99285; Q9967; A4216; G0378; J2405

== ENCOUNTER → 2024-12-17 | Outpatient (CLI) | payer MEDICARE, OTHER, SELFPAY ==
--- NOTE | 2024-12-17 14:35 | CT_ITS ---
PROCEDURE: CHEST WITHOUT CONTRAST 12/17/2024 REASON FOR EXAM: ABN FINDINGS OF LUNG TECHNIQUE: Chest CT without contrast. Coronal and Sagittal reconstruction series were provided. One or more dose reduction techniques were used (e.g., Automated exposure control, adjustment of the mA and/or kV according to patient size, use of iterative reconstruction technique RADIATION DOSE SUMMARY: CTDlvol: 8 mGy DLP: 316 mGycm COMPARISON: Chest radiograph 10/27/2024. CT chest 06/16/2024. FINDINGS: Hardware: None. Lymph nodes: Visualization is limited without the use of IV contrast. No axillary, mediastinal or hilar lymphadenopathy. Heart and Vasculature: The heart is normal in size without pericardial effusion. The great vessels are normal in caliber. Minimal coronary artery and thoracic aortic calcifications. Lungs and Airways: The central airways are patent. Stable tiny noncalcified nodules within the right lower lobe (series 4, images 76, 80, 82 and 85). No new or enlarging pulmonary nodule identified. No pleural effusion or pneumothorax. Upper Abdomen: Unremarkable. Bones: Cervical and thoracic spondylosis. No aggressive osseous lesions. CT/Chest without Contrast IMPRESSION: Stable tiny noncalcified nodules in the right lower lobe. No new or enlarging pulmonary nodule identified. Findings likely reflect noncalcified granulomas or scarring. If patient is high risk (smoking history or cancer history) optional follow-up CT chest could be obtained in 12 months. Otherwise no additional follow-up indica antonio by Fleischner criteria. Reading Location: [id number]
== END | disposition home or self-care (01) ==
LOC: CT 14:29
PROVIDERS: PCP Family Medicine; Referring Provider Family Medicine; Visit Provider Family Medicine
DX: R91.8 Other nonspecific abnormal finding of lung field (principal)
CPT/HCPCS: 71250

== ENCOUNTER → 2025-05-25 | Outpatient (CLI) | payer MEDICARE, OTHER, SELFPAY | END | disposition home or self-care (01) | LOC: LABSPEC 15:26 | PROVIDERS: PCP Family Medicine; Referring Provider Nurse Practitioner Women's Health; Visit Provider Nurse Practitioner Women's Health | DX: N94.89 Other specified conditions associated with female genital organs and menstrual cycle (principal) | CPT/HCPCS: 87070; 87205 ==